=== PATIENT | female | born 1945 | race Caucasian/White ===

== ENCOUNTER 2022-11-29 12:26 | Emergency (ER) | payer OTHER ==
--- OUTSIDE RECORDS SUMMARY | 2022-11-29 12:32 | XMS REPORT | Continuity of Care Document ---
:1945 Author Organization [facility] t Address [address] [facility] [address] [place] [address] Care Team Providers Name Role Phone Clement OLSON, Suraj Primary Care Physician Tarik Morocho Attending Clinician Suraj Vaughan Attending Clinician Trip OLSON, Anish Méndez Attending Clinician Susie Roberson MA Attending Clinician Unavailable Dionne Willams Attending Clinician Jl Trinidad Attending Clinician Tomi Montemayor Attending Clinician Tomi Montemayor Admitting Clinician Payers Payer Name Policy Type Policy Number Effective Date Expiration Date S ource Problems Condition Condition Condition Status Onset Resolution Last Treating Co mments Source Name Details Category Date Date Treatment Clinician Date 773.91 - 884.45 - Diagnosis Active 2013-042014-07-21 Memoria DYSPHAGIA DYSPHAGIA 06-03 20:43:00 l NOS 786.2 NOS 786.2 00:01: Julia meño - COUGH - COUGH 00 Active 04/02/2014 [facility] [place] Body mass Body mass Problem Active 2013-042020-08-22 Memoria index 30+ index 30+ 2 01:27:14 l - obesity - obesity 00:00: Julia meño (finding) (finding) 00 Active 04/02/2014 Problem 08/22/2020 Data migrated from [employer] on 09/21/14. Medical Group Malaise Malaise Problem Active 2013-042020-08-22 M emoria and and 06-03 01:27:14 l fatigue fatigue 00:00: Aurelio (finding) (finding) 00 Active 04/02/2014 Problem 08/22/2020 Data migrated from [employer] on 09/21/14. Medical Group CVA, POST CVA, Diagnosis Active 2013-12-18 Memoria TPA POST TPA 12-15 16:24:00 l Active 00:00: Aurelio 12/15/2013 00 [facility] SONJA SONJA Diagnosis Active 2013-12-15 Memoria BILLING BILLING 12-14 14:48:00 l Active 00:00: [place] 12/14/2013 00 [facility] Allergic Allergic Problem Resolve 2021-10-02 Memoria rhinitis rhinitis d 03:46:14 l (disorder) (disorder) David rmann Resolved Problem 10/02/2021 Data migrated from [employer] on 09/21/14. Medical Group Carpal Carpal Problem Resolve 2021-10-02 Mem oria tunnel tunnel d 03:46:14 l syndrome syndrome Kieran n (disorder) (disorder) Resolved Problem 10/02/2021 Medical Group,[facility] Adjustment Adjustmen Problem Active 2020-08-22 Memoria disorder t disorder 01:27:14 l with with Aurelio depressed depressed mood mood (disorder) (disorder) Active Problem 08/22/2020 Medical Group Dyssomnia Dyssomnia Problem Active 2022-02-11 Memoria (disorder) (disorder) 23:43:05 l Active [place] Problem 02/11/2022 Medical Group Generalize Problem Active 2022-02-11 M emoria d anxiety Generalize 23:43:05 l disorder d anxiety Lauren nn (disorder) disorder (disorder) Active Problem 02/11/2022 Medical Group Hyperlipid Hyperlipi Problem Active 2020-11-30 Memoria emia demia 00:19:42 l (disorder) (disorder) David rmann Active Problem 11/30/2020 Medical Group Dizzy Dizzy Problem Active 2020-08-22 Memor ia spells spells 01:27:14 l (finding) (finding) Herm meño Active Problem 08/22/2020 Medical Group Heart Heart Problem Active 2020-08-22 Memor ia murmur murmur 01:27:14 l (finding) (finding) Herm meño Active Problem 08/22/2020 Medical Group Joint pain Joint Problem Active 2020-08-22 M emoria (finding) pain 01:27:14 l (finding) [place] Active Problem 08/22/2020 [facility] Chronic Chronic Problem Active 2022-04-02 Me moria kidney kidney 23:11:35 l disease disease [place] stage 3 stage 3 (disorder) (disorder) Active Problem 04/02/2022 Medical Group,[facility] Gastroesop Gastroeso Problem Active 2022-04-02 Memoria hageal phageal 23:11:35 l reflux reflux [place] disease disease (disorder) (disorder) Active Problem 04/02/2022 [facility] Hypertensi Hypertens Problem Active 2022-04-02 Memoria ve margi 23:11:35 l disorder, disorder, Herm meño systemic systemic arterial arterial (disorder) (disorder) Active Problem 04/02/2022 Medical Group,[facility] Mixed Mixed Problem Active 2022-04-02 Memor ia anxiety anxiety 23:11:35 l and and Aurelio depressive depressive disorder disorder (disorder) (disorder) Active Problem 04/02/2022 [facility] Mixed Mixed Problem Active 2022-04-02 Memor ia hyperlipid hyperlipid 23:11:35 l lc platt Aurelio (disorder) (disorder) Active Problem 04/02/2022 Medical Group,[facility] Simple Simple Problem Active 2022-04-02 [facility] obesity obesity 23:11:35 l (disorder) (disorder) He rmann Active Problem 04/02/2022 [facility] CVA CVA Diagnosis Active 2013-12-18 Mem oria Active 16:24:[address] [facility] Atrophic Atrophic Problem Resolve 2013-042021-10-02 2021-10-02 Memoria vaginitis vaginitis d 06-03 03:46:14 03:46:14 l (disorder) (disorder) 00:00: He rmann Resolved 00 04/02/2014 Problem 10/02/2021 Data migrated from [employer] on 10/30/14.
Data migrated from [employer] on 09/21/14. Medical Group Dysphagia Problem Resolve 2013-042021-10-02 2021-10-02 Memoria (disorder) Dysphagia d 06-03 03:46:14 03:46:14 l (disorder) 00:00: Kieran n Resolved 00 04/02/2014 Problem 10/02/2021 Data migrated from [employer] on 09/21/14. [facility] Screening Screening Problem Resolve 2013-042021-10-02 2021-10-02 Memoria - health - health d 06-03 03:46:14 03:46:14 l check check 00:00: Aurelio (procedure (procedure 00 ) ) Resolved 04/02/2014 Problem 10/02/2021 Data migrated from [employer] on 10/30/14. [facility] Reactive Reactive Problem Resolve 2013-042021-10-02 2021-10-02 Memoria airways airways d 04-29 03:46:14 03:46:14 l dysfunctio dysfunctio 00:00: David guzman n syndrome n syndrome 00 (disorder) (disorder) Resolved 02/27/2014 Problem 10/02/2021 Data migrated from [employer] on 09/21/14. [facility] Dry skin Dry skin Problem Resolve 2021-10-02 2021-10-02 Memoria (finding) (finding) d 08-22 03:46:14 03:46:14 l Resolved 00:00: Aurelio 08/22/2012 00 Problem 10/02/2021 Data migrated from [employer] on 09/21/14. [facility] Long-term Long-term Problem Resolve 2021-10-02 2021-10-02 Memoria drug drug d 08-22 03:46:14 03:46:14 l therapy therapy 00:00: Aurelio (procedure (procedure 00 ) ) Resolved 08/22/2012 Problem 10/02/2021 Data migrated from [employer] on 09/21/14. Medical Group History of Past Illness Condition Condition Condition Status Onset Resolution Last Treating Co mments Source Name Details Category Date Date Treatment Clinician Date Obesity Obesity Diagnosis 2021-042022-04-02 2022-04-02 Memoria (disorder) (disorder) 2 23:11:35 23:11:35 l 03/31/2022 11:29: Kieran n Diagnosis 00 04/02/2022 Medical Group Chronic Chronic Diagnosis 2021-042022-04-02 2022-04-02 Memoria obstructiv obstructiv 2 23:11:35 23:11:35 l e lung e lung 11:29: Aurelio disease disease 00 (disorder) (disorder) 03/31/2022 Diagnosis 04/02/2022 Medical Group,[facility] Primary [facility] Anxiety Anxiety Diagnosis 2021-042022-04-02 2022-04-02 Memoria disorder disorder 06-01 23:11:35 23:11:35 l (disorder) (disorder) 11:29: He rmann 2 Diagnosis 04/02/2022 [facility] Primary [facility] Essential Essential Diagnosis 2021-042022-04-02 2022-04-02 Memoria hypertensi hypertensi 06-01 23:11:35 23:11:35 l on on 11:29: [place] (disorder) (disorder) 00 Diagnosis 04/02/2022 [facility] Gastroesop Gastroeso Diagnosis 2021-042022-04-02 2022-04-02 Memoria hageal phageal 06-01 23:11:35 23:11:35 l reflux reflux 11:29: Aurelio disease disease 00 without without esophagiti esophagiti s s (disorder) (disorder) 03/31/2022 Diagnosis 04/02/2022 [facility] Primary [facility] Encounter Encounter Problem 2021-10-02 2021-10-02 Memoria for for 09-29 03:46:14 03:46:14 l screening screening 14:30: Herm meño for for 00 malignant malignant neoplasm neoplasm of colon of colon 09/29/2021 10/02/2021 Medical [facility] Vitamin D Vitamin D Problem 2021-10-02 2021-10-02 Memoria deficiency deficiency 09-29 03:46:14 03:46:14 l , , 14:29: [place] unspecifie unspecifie 00 d d 09/29/2021 10/02/2021 Medical Group Mixed Mixed Problem 2021-10-02 2021-10-02 M emoria hyperlipid hyperlipid 09-29 03:46:14 03:46:14 l emia emia 14:29: [place] 09/29/2021 00 10/02/2021 Medical Group Iron Iron Problem 2021-10-02 2021-10-02 M emoria deficiency deficiency 09-29 03:46:14 03:46:14 l anemia, anemia, 14:29: Aurelio unspecifie unspecifie 00 d d 09/29/2021 10/02/2021 Medical Group Other long Other Problem 2021-10-02 2021-10-02 Memoria 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 09-29 03:46:14 03:46:14 l (current) (current) 14:29: Herm meño drug drug 00 therapy therapy 09/29/2021 10/02/2021 Medical Group Essential Essential Problem 2021-10-02 2021-10-02 Memoria (primary) (primary) 09-29 03:46:14 03:46:14 l hypertensi hypertensi 14:28: David rmann on on 09/29/2021 10/02/2021 [facility] Chronic Chronic Problem 2021-10-02 2021-10-02 Memoria kidney kidney 09-29 03:46:14 03:46:14 l disease, disease, 14:28: Kieran n stage 3 stage 3 00 unspecifie unspecifie d d 09/29/2021 10/02/2021 Medical Group Generalize Problem 2021-10-02 2021-10-02 Memoria d anxiety Generalize 09-29 03:46:14 03:46:14 l disorder d anxiety 14:28: Lauren nn disorder 00 09/29/2021 10/02/2021 Medical Group Gastro-eso Gastro-es Problem 2021-10-02 2021-10-02 Memoria phageal ophageal 09-29 03:46:14 03:46:14 l reflux reflux 14:28: Aurelio disease disease 00 without without esophagiti esophagiti s s 09/29/2021 10/02/2021 Medical Group Sleep Sleep Problem 2021-10-02 2021-10-02 M emoria disorder, disorder, 09-29 03:46:14 03:46:14 l unspecifie unspecifie 14:28: He rmann d d 00 09/29/2021 10/02/2021 Medical Group Cardiac Cardiac Problem 2020-042021-03-26 2021-03-26 Memoria murmur, murmur, 05-23 01:24:34 01:24:34 l unspecifie unspecifie 20:30: He rmann d d 00 03/23/2021 03/26/2021 Medical Group Pain in Pain in Problem 2020-042021-03-26 2021-03-26 Memoria unspecifie unspecifie 05-23 01:24:34 01:24:34 l d elbow d elbow 20:28: Aurelio 03/23/2021 00 03/26/2021 Medical Group Rash and Rash and Problem 2020-042021-03-26 2021-03-26 Memoria other other 05-23 01:24:34 01:24:34 l nonspecifi nonspecifi 20:27: He ngocann c skin c skin 00 eruption eruption 03/23/2021 Medical Group Other Other Problem 2020-042021-03-26 2021-03-26 M emoria fatigue fatigue 05-23 01:24:34 01:24:34 l 03/23/2021 20:18: Kieran ham 03/26/2021 00 Medical Group Pain in Pain in Problem 2020-042021-03-26 2021-03-26 Memoria left foot left foot 05-23 01:24:34 01:24:34 l 03/23/2021 20:17: Kieran ham 03/26/2021 00 Medical Group Pain in Pain in Problem 2020-042021-03-26 2021-03-26 Memoria right right 05-23 01:24:34 01:24:34 l shoulder shoulder 20:17: Kieran ham 03/23/2021 00 03/26/2021 Medical Group Anemia, Anemia, Problem 2020-042021-03-26 2021-03-26 Memoria unspecifie unspecifie 05-23 01:24:34 01:24:34 l d d 20:14: [place] 03/23/2021 00 03/26/2021 Medical Group Allergies, Adverse Reactions, Alerts Allergy Allergy Status Severity Reaction(s) Onset Inactive Treating Comm ents Source Name Type Date Date Clinician No Known No Known Active Memori a Medicati Medicati l on on Aurelio Allergmargaret Allergmargaret s s Social History Social Habit Start Date Stop Date Quantity Comments Source History [facility] Confucianist Alcohol Std Drinks Hospit al History [facility] Gender identity [facility] Tobacco use and 2021-06-08 2021-06-08 Smokeless [facility] exposure 00:00:00 00:00:00 tobacco non-user Hospital History SDOH 2021-06-08 2021-06-08 1 [facility] Alcohol Frequency 00:00:00 00:00:00 Hospita l Alcohol intake 2021-06-08 2021-06-08 Lifetime Confucianist 00:00:00 00:00:00 non-drinker Hospital (finding) History of Social 2021-06-08 2021-06-[address] function 00:00:00 00:00:00 Hospital Sex Ass[birth year] At [birth year] [facility] 00:00:00 00:00:00 Hospital Smoking Status Start Date Stop Date Source Tobacco smoking status [facility] Medications Ordered Filled Start Stop Current Ordering Indication Dosage Frequency Signature Comments Components Source Medication Medication Date Date Medication? Clinician (SIG) Name Name doxepin 50 2021-04 Yes = 1 cap, Mem oria mg oral 1-07 PO, l capsule 19:17: Bedtime, Kieran n 00 PRN NEEDED FOR SLEEP, # 90 unknown unit, 0 Refill(s), Pharmacy: [facility] #[id number], 156.21, cm, 09/29/21 9:03:00 CDT, Height, 73.636, kg, 09/29/21 9:03:00 CDT, Weight pantoprazol 2021-04 Yes = 1 tab, Me moria e 40 mg 1-02 PO, Daily, l oral 18:57: # 90 tab, [place] enteric 00 0 coated Refill(s), tablet Pharmacy: [facility] #[id number], 156.21, cm, 09/29/21 9:03:00 CDT, Height, 73.636, kg, 09/29/21 9:03:00 CDT, Weight doxepin 50 2021-04 Yes = 1 cap, Mem oria mg oral 0-02 PO, l capsule 16:31: Bedtime, Kieran n 00 PRN NEEDED FOR SLEEP, # 90 unknown unit, 0 Refill(s), Pharmacy: [facility] #[id number], 156.21, cm, 09/29/21 9:03:00 CDT, Height, 73.636, kg, 09/29/21 9:03:00 CDT, Weight pantoprazol 2021-04 Yes = 1 tab, Me moria e 40 mg 0-02 PO, Daily, l oral 16:31: # 90 tab, [place] enteric 00 0 coated Refill(s), tablet Pharmacy: [facility] #[id number], 156.21, cm, 09/29/21 9:03:00 CDT, Height, 73.636, kg, 09/29/21 9:03:00 CDT, Weight celecoxib 2021- Yes = 1 cap, Hesham chi 100 mg oral 7-15 PO, BID, l capsule 19:12: PRN [place] 00 NEEDED FOR PAIN, # 180 cap, 1 Refill(s), Pharmacy: [facility] #[id number], 156.21, cm, 09/29/21 9:03:00 CDT, Height, 73.636, kg, 09/29/21 9:03:00 CDT, Weight tizanidine Yes = 1 cap, Mem oria 2 mg oral 6-23 PO, l capsule 13:46: Bedtime, Kieran n 00 PRN NEEDED FOR MUSCLE SPASM, # 90 unknown unit, 1 Refill(s), Pharmacy: [facility] #[id number], 156.21, cm, 09/29/21 9:03:00 CDT, Height, 73.636, kg, 09/29/21 9:03:00 CDT, Weight hydrochloro 2021-0 Yes 1 tab, PO, Memoria thiazide-va 6-07 Daily, # l lsartan 25 14:26: 90 tab, 3 He rmann mg-320 mg 00 Refill(s), oral tablet Pharmacy: [facility] #[id number], 156.21, cm, 09/29/21 9:03:00 CDT, Height, 73.636, kg, 09/29/21 9:03:00 CDT, Weight Symbicort Yes 10 gm, Memori a 80/4.5 09-29 INHALE 2 l inhalation 14:02: PUFFS BY Her ball aerosol 00 MOUTH with TWICE adapter DAILY, 0 Refill(s) aspirin 81 2021-0 Yes 81mg QD Chew 81 mg M ethodi mg chewable 2-[address] tablet 10:15: Hospita 48 l ALBUTEROL, 2021-0 Yes as needed. M ethodi BULK, MISC 2-14 st 10:15: Hospita 48 l aspirin 81 2021-0 Yes 81mg QD Chew 81 mg M ethodi mg chewable 2-[address] tablet 10:15: Hospita 48 l ALBUTEROL, 2021-0 Yes as needed. M ethodi BULK, MISC 2-14 st 10:15: Hospita 48 l celecoxib 2021-0 Yes Q.5D 2 (two) Metho di (CeleBREX) 2-[address] 100 MG 00:00: day as Hospita capsule 00 needed. l celecoxib 2021-0 Yes Q.5D 2 (two) Metho di (CeleBREX) 2-[address] 100 MG 00:00: day as Hospita capsule 00 needed. l doxepin 2021-0 Yes 50mg QD Take 50 mg Meth selena (SINEquan) 1-[address] 50 MG 00:00: nightly as Hospit a capsule 00 needed. l doxepin 2021-0 Yes 50mg QD Take 50 mg Meth selena (SINEquan) 1-[address] 50 MG 00:00: nightly as Hospit a capsule 00 needed. 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, Height, 70.568, kg, 03/23/21 13:47:00 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, Weight Metoprolol 2020-04 Yes = 1 tab, Mem oria Succinate - PO, Daily, l ER 50 mg 20:15: # 90 tab, Herm meño oral 00 3 tablet, Refill(s), extended Pharmacy: [id number], 154.94, cm, 03/23/21 13:47:00 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, Height, 70.568, kg, 03/23/21 13:47:00 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, Weight celecoxib 2020-04 Yes = 1 cap, Hesham chi 100 mg oral 05-23 PO, BID, l capsule 20:15: PRN [place] 00 NEEDED FOR PAIN, # 60 cap, 5 Refill(s), [facility][id number], 154.94, cm, 03/23/21 13:47:00 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, Height, 70.568, kg, 03/23/21 13:47:00 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, Weight Hydrochloro 2020-04 Yes 1 tab, PO, Memoria thiazide 25 - Daily, # l MG / 20:15: 90 tab, 0 [place] valsartan 00 Refill(s), 320 MG Oral Pharmacy: [facility]t [facility][id number], 154.94, cm, 03/23/21 13:47:00 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, Height, 70.568, kg, 03/23/21 13:47:00 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, Weight pantoprazol 2020-04 Yes = 1 tab, Me moria e 40 mg - PO, Daily, l oral 20:15: # 90 tab, Aurelio enteric 00 1 coated Refill(s), tablet Pharmacy: [facility] #[id number], 154.94, cm, 03/23/21 13:47:00 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, Height, 70.568, kg, 03/23/21 13:47:00 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, Weight Combivent 2020-04 Yes See Memoria Respimat 05-23 Instructio l CFC free 20:14: ns, INHALE Her ball 100 mcg-20 00 1 PUFF BY mcg/inh MOUTH inhalation EVERY 6 aerosol HOURS NEEDED WHEEZING, # 12 gm, 0 Refill(s), Pharmacy: [facility] #[id number], 154.94, cm, 03/23/21 13:47:00 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, Height, 70.568, kg, 03/23/21 13:47:00 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, Weight 120 ACTUAT 2020-04 Yes See Memoria Albuterol 05-23 Instructio l 0.1 20:14: ns, INHALE Aurelio MG/ACTUAT / 00 1 PUFF BY Ipratropium MOUTH [place] EVERY 6 0.02 HOURS MG/ACTUAT NEEDED Metered WHEEZING, Dose # 12 gm, 0 Inhaler Refill(s), [Combivent Pharmacy: ] [facility] #[id number], 154.94, cm, 03/23/21 13:47:00 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 l ) 320-25 mg per tablet pantoprazol 2020-04 Yes 40mg QD Take 40 mg Methodi e 05-[address] (PROTONIX) 00:00: daily. Hospi ta 40 MG EC 00 l tablet metoprolol 2020-04 Yes 25mg QD Take 25 mg M ethodi succinate 05-[address] XL 00:00: daily. Hospita (TOPROL-XL) 00 l 50 mg 24 hr tablet valsartan-h 2020-04 Yes 1{tbl} QD Take 1 Me thodi ydrochlorot -[address] hiazide 00:00: mouth Hospita (DIOVAN-HCT 00 daily. l ) 320-25 mg per tablet pantoprazol 2020-04 Yes 40mg QD Take 40 mg Methodi e 05-[address] (PROTONIX) 00:00: daily. Hospi ta 40 MG EC 00 l tablet metoprolol 2020-04 Yes 25mg QD Take 25 mg M ethodi succinate 05-[address] XL 00:00: daily. Hospita (TOPROL-XL) 00 l 50 mg 24 hr tablet Symbicort Yes 2 puff, Memor ia 80/4.5 01-21 INHALATION l inhalation 09:33: , BID, # Her ball aerosol 00 10.2 gm, 2 with Refill(s), adapter Pharmacy: [facility] #[id number], 154.94, cm, 01/13/21 11:35:00 CDT, Height, 74.091, kg, 01/13/21 11:35:00 CDT, Weight budesonide- Yes 2 puff, Mem oria formoterol 01-13 INHALATION l 160 mcg-4.5 20:05: , BID, # 6 [place] mcg/inh 00 gm, 0 inhalation Refill(s), aerosol Pharmacy: [facility] #[id number], 154.94, cm, 01/13/21 11:35:00 CDT, Height, 74.091, kg, 01/13/21 11:35:00 CDT, Weight Symbicort 0 No 2 puff, Memor ia 160/4.5 01-13 INHALATION l inhalation 17:16: , BID, # Her ball aerosol 00 10.2 gm, 1 with Refill(s), adapter Pharmacy: [facility] #[id number], 154.94, cm, 01/13/21 11:35:00 CDT, Height, 74.091, kg, 01/13/21 11:35:00 CDT, Weight 120 ACTUAT 0 Yes See Memoria Albuterol - Instructio l 0.1 17:16: ns, INHALE [place] MG/ACTUAT / 00 1 PUFF BY Ipratropium MOUTH [place] EVERY 6 0.02 HOURS MG/ACTUAT NEEDED Metered WHEEZING, Dose # 12 gm, 0 Inhaler Refill(s), [Combivent Pharmacy: ] [facility] #[id number], 154.94, cm, 01/13/21 11:35:00 CDT, Height, 74.091, kg, 01/13/21 11:35:00 CDT, Weight predniSONE 2020-0 Yes 40 mg = 2 Me moria 20 mg oral 9-21 tab, PO, l tablet 17:15: Daily, X 5 Lauren nn 00 day, # 10 tab, 0 Refill(s), Pharmacy: [facility] #[id number], 154.94, cm, 01/13/21 11:35:00 CDT, Height, 74.091, kg, 01/13/21 11:35:00 CDT, Weight Doxycycline 0 Yes 100 mg = 1 Memoria Monohydrate 9-21 cap, PO, l 100 MG Oral 17:15: Q12H, X 10 Aurelio Capsule day, # 20 cap, 0 Refill(s), Pharmacy: [facility] #[id number], 154.94, cm, 01/13/21 11:35:00 CDT, Height, 74.091, kg, 01/13/21 11:35:00 CDT, Weight Doxepin 0 Yes 50 mg = 1 Memor ia Hydrochlori 8-04 cap, PO, l de 50 MG 23:12: Bedtime, Lauren nn Oral 00 PRN Sleep, Capsule # 30 cap, 0 Refill(s), Pharmacy: [facility] #[id number], 154.94, cm, 11/21/20 7:06:00 CDT, Height, 69.091, kg, 11/21/20 7:06:00 CDT, Weight Ibuprofen 2020-0 Yes 200 mg = 1 Me moria 200 MG Oral 7-30 tab, PO, l Tablet 21:38: PRN Aurelio 00 ibuprofen 0 Yes 200 mg = 1 Me moria 200 mg oral 7-30 tab, PO, l tablet 21:38: PRN [place] 00 clobetasol 2020-0 Yes 1 appl, Hesham chi topical 7-30 TOP, BID, l 0.05% cream 12:27: X 14 day, H ermann 00 # 45 gm, 1 Refill(s), [id number], 154.94, cm, 11/21/20 7:06:00 CDT, Height, 69.091, kg, 11/21/20 7:06:00 CDT, Weight Hydrochloro 2020-0 No 0 Memori a thiazide 25 7-30 Refill(s) l MG / 12:16: [place] valsartan 00 320 MG Oral Tablet Aspirin Low 2020-0 Yes = 1 tab, Me moria Dose 81 mg 4-12 PO, Daily, l oral 22:47: # 90 tab, [place] enteric 00 4 coated Refill(s), tablet Pharmacy: [facility] #[id number], 156.21, cm, 06/18/20 8:35:00 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, Height, 69.773, kg, 06/18/20 8:35:00 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, Weight Symbicort 0 Yes 2 puff, Memor ia 160/4.5 2-24 INHALATION l inhalation 20:33: , BID, # Her ball aerosol 00 10.2 gm, 1 with Refill(s), adapter Pharmacy: [facility] #[id number], 156.21, cm, 06/18/20 8:35:00 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, Height, 69.773, kg, 06/18/20 8:35:00 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, Weight tizanidine 0 Yes 2 mg = 1 Mem oria 2 mg oral 2-24 cap, PO, l capsule 15:04: Bedtime, Kieran n 00 PRN for muscle spasm, # 90 cap, 1 Refill(s), Pharmacy: [facility] #[id number], 156.21, cm, 06/18/20 8:35:00 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, Height, 69.773, kg, 06/18/20 8:35:00 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, Weight doxazosin 2 2020-0 Yes = 1 tab, Me moria mg oral 2-24 PO, l tablet 15:03: Bedtime, # Lauren nn 00 30 tab, 5 Refill(s), Pharmacy: [facility] #[id number], 156.21, cm, 06/18/20 8:35:00 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, Height, 69.773, kg, 06/18/20 8:35:00 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, Weight buPROPion Yes See Memoria 150 mg/12 2-24 Instructio l hours (SR) 15:02: ns, TAKE 1 H ermann oral 00 TABLET BY tablet, MOUTH extended TWICE release DAILY, # 180 tab, 1 Refill(s), Pharmacy: [facility] #[id number], 156.21, cm, 06/18/20 8:35:00 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, Height, 69.773, kg, 06/18/20 8:35:00 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, Weight tiotropium Yes See Memoria 0.018 2-24 Instructio l MG/ACTUAT 15:02: ns, INHALE He rmann Inhalant 00 THE Powder CONTENTS [Spiriva] OF 1 CAPSULE VIA INHALATION DEVICE DAILY, # 30 cap, 5 Refill(s), Pharmacy: [facility] #[id number], 156.21, cm, 06/18/20 8:35:00 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, Height, 69.773, kg, 06/18/20 8:35:00 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, Weight Symbicort Yes 2 puff, Memor ia 160/4.5 2-24 INHALATION l inhalation 15:02: , BID, # 3 H ermann aerosol 00 ea, 1 with Refill(s), adapter Pharmacy: [facility] #[id number], 156.21, cm, 06/18/20 8:35:00 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, Height, 69.773, kg, 06/18/20 8:35:00 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, Weight celecoxib 0 Yes = 1 cap, [place] chi 100 mg oral 2-24 PO, BID, l capsule 15:02: PRN [place] 00 NEEDED FOR PAIN, # 180 cap, 1 Refill(s), Pharmacy: [facility] #[id number], 156.21, cm, 06/18/20 8:35:00 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, Height, 69.773, kg, 06/18/20 8:35:00 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, Weight Hydrochloro 0 Yes 1 tab, PO, Memoria thiazide 25 2-24 Daily, # l MG / 15:02: 90 tab, 1 Aurelio valsartan 00 Refill(s), 320 MG Oral Pharmacy: [facility] #[id number], 156.21, cm, 06/18/20 8:35:00 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, Height, 69.773, kg, 06/18/20 8:35:00 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, Weight Metoprolol Yes = 1 tab, Mem oria Succinate 2-24 PO, Daily, l ER 50 mg 15:02: # 90 tab, Herm meño oral 00 1 tablet, Refill(s), extended Pharmacy: release [facility] #[id number], 156.21, cm, 06/18/20 8:35:00 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, Height, 69.773, kg, 06/18/20 8:35:00 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, Weight baclofen 10 No = 1 tab, Me moria mg oral 1-30 PO, TID, # l tablet 23:18: 90 tab, 0 Kieran n 00 Refill(s), Pharmacy: [facility] #[id number], 154.94, cm, 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, Height, 75, kg, 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, Weight Aspirin Yes 81 mg = 1 Memor ia Enteric 1-13 tab, PO, l Coated 81 13:15: Daily, X Herm meño mg oral 00 90 day, # delayed 90 tab, 0 release Refill(s), tablet Pharmacy: [facility] #[id number], 154.94, cm, 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, Height, 75, kg, 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, Weight pantoprazol Yes = 1 tab, Me moria e 40 mg 1-13 PO, Daily, l oral 13:15: # 90 tab, Aurelio enteric 00 0 coated Refill(s), tablet Pharmacy: [facility] #[id number], 154.94, cm, 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, Height, 75, kg, 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, Weight Hydrochloro Yes 1 tab, PO, Memoria thiazide 25 1-13 Daily, # l MG / 13:15: 90 tab, 0 [place] valsartan 00 Refill(s), 320 MG Oral Pharmacy: Tablet [facility] #[id number], 154.94, cm, 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, Height, 75, kg, 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, Weight Ondansetron 2019-04 Yes 8 mg = 1 Me moria 8 MG Oral 1-25 tab, PO, l Tablet 15:42: TID, # 10 Kieran n [Zofran] 00 tab, 0 Refill(s), 154.94, cm, 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, 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, 75, kg, 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, Weight amoxicillin 2018-04 Yes 500 mg = 1 Memoria 500 mg oral 2-23 tab, PO, l tablet 14:46: TID, X 7 Aurelio 00 day, # 21 tab, 0 Refill(s), Pharmacy: [facility] #[id number] tiotropium 2018-04 Yes See Memoria 0.018 2-23 Instructio l MG/ACTUAT 14:40: ns, INHALE David guzman Inhalant 09 THE Powder CONTENTS [Spiriva] OF 1 CAPSULE VIA INHALATION DEVICE DAILY, # 30 cap, 5 Refill(s), Pharmacy: [facility] #[id number] pantoprazol 2018-04 Yes = 1 tab, Me moria e 40 mg 2-23 PO, Daily, l oral 14:39: # 90 tab, Aurelio enteric 38 1 coated Refill(s), tablet Pharmacy: [facility] #[id number] OXcarbazepi 2018-04 Yes 300 mg = 1 Memoria ne 300 mg 2-23 tab, PO, l oral tablet 14:39: BID, # 180 Aurelio 37 tab, 1 Refill(s), Pharmacy: [facility] #[id number] Ondansetron 2018-04 Yes 8 mg = 1 Me moria 8 MG 2-23 tab, PO, l Disintegrat 14:39: TID, PRN David guzman ing Tablet 34 Nausea and [Zofran] Vomiting, Dissolve tab under tongue, # 10 tab, 0 Refill(s), Pharmacy: [facility] #[id number] metoprolol 2018-04 Yes 50 mg = 1 Me moria 50 mg oral 2-23 tab, PO, l tablet, 14:39: Daily, # Kieran n extended 30 90 tab, 1 release Refill(s), Pharmacy: [facility] #[id number] levocetiriz 2018- Yes 5 mg = 1 Me moria ine 5 mg 2-23 tab, PO, l oral tablet 14:39: Bedtime, He rmann 27 PRN as needed for allergy symptoms, # 90 tab, 1 Refill(s), Pharmacy: [facility] #[id number] Hydrochloro 2018- Yes 1 tab, PO, Memoria thiazide 25 2-23 Daily, # l MG / 14:39: 90 tab, 1 Aurelio valsartan 24 Refill(s), 320 MG Oral Pharmacy: Tablet [facility] #[id number] doxazosin 2 2018-04 Yes = 1 tab, Me moria mg oral 2-23 PO, l tablet 14:37: Bedtime, # Lauren nn 21 90 tab, 1 Refill(s), Pharmacy: [facility] #[id number] celecoxib 2018-04 Yes See Memoria 100 mg oral 2-23 Instructio l capsule 14:37: ns, TAKE 1 Herm meño 08 CAPSULE BY MOUTH TWICE DAILY NEEDED FOR PAIN, # 180 cap, 1 Refill(s), Pharmacy: [facility] #[id number] buPROPion 2018-04 Yes See Memoria 150 mg/12 2-23 Instructio l hours (SR) 14:37: ns, TAKE 1 H ermann oral 06 TABLET BY tablet, MOUTH extended TWICE release DAILY, # 180 tab, 1 Refill(s), Pharmacy: [facility] #[id number] Symbicort 2018- Yes 2 puff, Memor ia 160/4.5 2-23 INHALATION l inhalation 14:37: , BID, # 3 H ermann aerosol 00 ea, 1 with Refill(s), adapter Pharmacy: [facility] #[id number] baclofen 10 2018-04 Yes = 1 tab, Me moria mg oral 2-23 PO, TID, # l tablet 14:36: 270 tab, 1 Lauren nn 55 Refill(s), [id number] Aspirin 2018- Yes See Memoria Enteric 2-23 Instructio l Coated 81 14:36: ns, TAKE 1 He rmann mg oral 45 TABLET BY delayed MOUTH release DAILY, # tablet 100 tab, 3 Refill(s), Pharmacy: [facility] #[id number] 120 ACTUAT 2018-04 Yes 1 puff, Hesham chi Albuterol 2-23 INHALATION l 0.1 14:36: , Q6H, PRN [place] MG/ACTUAT / 42 wheezing, Ipratropium # 3 ea, 1 [place] Refill(s), 0.02 Pharmacy: MG/ACTUAT [facility] #[id number] Inhaler [Combivent 20/100] Doxepin 2018-04 Yes 50 mg = 1 Memor ia Hydrochlori 2-23 cap, PO, l de 50 MG 14:36: Bedtime, Lauren nn Oral 00 PRN Sleep, Capsule # 30 cap, 3 Refill(s), Pharmacy: [facility] #[id number] levocetiriz Yes 5 mg = 1 Me moria ine 5 mg 9-24 tab, PO, l oral tablet 16:47: Bedtime, He rmann 00 PRN as needed for allergy symptoms, # 30 tab, 1 Refill(s), Pharmacy: [facility] #[id number] Estrogens, Yes 1 appl, Hesham chi Conjugated 9-24 VAG, l (LONG TERM) 0.625 16:47: Bedtime, He rmann MG/ML 00 daily for Vaginal 21 days, Cream then off [Premarin] for 7 days, # 42 gm, 0 Refill(s), Pharmacy: [facility] #[id number] Hydrochloro 2018- Yes 1 tab, PO, Memoria thiazide 25 9-24 Daily, # l MG / 16:45: 90 tab, 1 Aurelio valsartan 00 Refill(s), 320 MG Oral [id number] tiotropium Yes See Memoria 0.018 9-24 Instructio l MG/ACTUAT 16:44: ns, INHALE He rmann Inhalant 32 THE Powder CONTENTS [Spiriva] OF 1 CAPSULE VIA INHALATION DEVICE DAILY, # 30 cap, 5 Refill(s), [id number] pantoprazol Yes = 1 tab, Me moria e 40 mg 9-24 PO, Daily, l oral 16:44: # 30 tab, [place] enteric 25 5 coated Refill(s), tablet Pharmacy: [facility] #[id number] OXcarbazepi 2019- Yes 300 mg = 1 Memoria ne 300 mg 9-24 tab, PO, l oral tablet 16:44: BID, # 60 H ermann 17 tab, 5 Refill(s), Pharmacy: [facility] #[id number] Doxepin 2019- Yes = 1 cap, Memori a Hydrochlori 9-24 PO, l de 25 MG 16:43: Bedtime, Lauren nn Oral 41 PRN Capsule NEEDED FOR SLEEP, # 30 cap, 5 Refill(s), Pharmacy: [facility] #[id number] doxazosin 2 Yes = 1 tab, Me moria mg oral 9-24 PO, l tablet 16:43: Bedtime, # Lauren nn 35 30 tab, 5 Refill(s), Pharmacy: [facility] #[id number] celecoxib Yes = 1 cap, Hesham chi 100 mg oral 9-24 PO, BID, l capsule 16:43: PRN Aurelio 17 NEEDED FOR PAIN, # 60 cap, 3 Refill(s), Pharmacy: [facility] #[id number] buPROPion Yes See Memoria 150 mg/12 9-24 Instructio l hours (SR) 16:43: ns, TAKE 1 H ermann oral 12 TABLET BY tablet, MOUTH extended TWICE release DAILY, # 60 tab, 5 Refill(s), Pharmacy: [facility] #[id number] baclofen 10 Yes = 1 tab, Me moria mg oral 9-24 PO, TID, # l tablet 16:42: 270 tab, 1 Lauren nn 58 Refill(s), Pharmacy: [facility] #[id number] metoprolol 2018- Yes 50 mg = 1 Me moria 50 mg oral 9-24 tab, PO, l tablet, 16:40: Daily, # Kieran n extended 00 90 tab, 1 release Refill(s), [id number] celecoxib 2018- Yes 100 mg = 1 Me moria 100 mg oral 3-25 cap, PO, l capsule 16:55: BID, PRN Kieran n 00 Pain Score 7-10, # 60 cap, 3 Refill(s), Pharmacy: [facility] Cephalexin Yes 500 mg = 1 M emoria 500 MG Oral 3-25 cap, PO, l Capsule 16:55: BID, X 7 Kieran n [Keflex] 00 day, # 14 cap, 0 Refill(s), Pharmacy: [facility] Hydrochloro Yes 1 tab, PO, Memoria thiazide 25 3-25 Daily, # l MG / 16:47: 90 tab, 1 [place] telmisartan 00 Refill(s), 80 MG Oral Pharmacy: Tablet [facility] Hydrochloro Yes See Memori a thiazide 25 3-25 Instructio l MG / 16:45: ns, TAKE 1 Aurelio valsartan 51 TABLET BY 320 MG Oral MOUTH Tablet DAILY, # 30 tab, 5 Refill(s), Pharmacy: [facility] [place] [address] Doxepin Yes See Memoria Hydrochlori 3-14 Instructio l de 25 MG 22:39: ns, TAKE 1 Her ball Oral 00 CAPSULE BY Capsule MOUTH AT BEDTIME NEEDED FOR SLEEP, # 30 cap, 1 Refill(s), Pharmacy: [facility] [place] [address] baclofen 10 Yes = 1 tab, Me moria mg oral 3-13 PO, TID, # l tablet 16:22: 270 tab, [place] 40 Pharmacy: [facility] [place] [address] baclofen 10 No = 1 tab, Me moria mg oral 1-07 PO, TID, l tablet 18:59: PRN Aurelio 53 NEEDED FOR SPASMS, # 60 tab, Refill(s) 1, Pharmacy: [facility] [place] [address] Ondansetron 2017-04 Yes 8 mg = 1 Me moria 8 MG 2-27 tab, PO, l Disintegrat 21:30: TID, PRN He rmmeño ing Tablet 00 Nausea and [Zofran] Vomiting, Dissolve tab under tongue, # 10 tab, 0 Refill(s), Pharmacy: [facility] [place] [address] levalbutero 2017-04 Yes 1.25 mg = M emoria l 1.25 2-26 0.5 mL, l mg/0.5 mL 22:02: NEB, TID, Her ball inhalation 00 PRN for solution wheezing, # 60 ea, 2 Refill(s), Pharmacy: [facility] Bromphenira 2017-04 No 5 mL, PO, M emoria mine 2- TID, PRN l Maleate 0.4 21:57: cough, X 8 Aurelio MG/ML / 00 day, # 120 Dextrometho mL, 0 rphan Refill(s), Hydrobromid Pharmacy: e 2 MG/ML / [facility] [id number] Hydrochlori de 6 MG/ML Oral Solution [Bromfed DM] Albuterol 2017-04 No 2.49 mg = Mem oria 0.83 MG/ML 06-20 3 mL, l Inhalant 21:56: INHALATION Her ball Solution 00 , Q6H, PRN wheezing, coughing, or shortness of breath, # 50 ea, 1 Refill(s), Pharmacy: [facility] Azithromyci 2017-04 No See Memori a n 5 Day 2- Instructio l Dose Pack 20:52: ns, Take 2 He rmann 250 mg oral 00 tablets by tablet mouth the first day then 1 tablet by mouth days 2-5., X 5 day, # 6 tab, 0 Refill(s), Pharmacy: [facility] Medrol 4 mg 2017-04 Yes = 1 pkt, Me moria oral tablet - PO, ONCE, l 20:52: as Aurelio 00 directed on package labeling, # 21 tab, 0 Refill(s), Pharmacy: [facility] Albuterol 2017-04 No 3 mL, NEB, Me moria 0.833 MG/ML 06-20 Q6H, PRN l / 20:51: wheezing, [place] Ipratropium 00 cough, SOB [place] (493.90, 0.167 MG/ML 496), # Inhalant 360 mL, 1 Solution Refill(s), Pharmacy: [facility] baclofen 10 2017-04 No See Memori a mg oral 0-10 Instructio l tablet 22:16: ns, # 270 Kieran n 22 tab, Refill(s) 1, TAKE 1 TABLET BY MOUTH THREE TIMES DAILY NEEDED FOR SPASMS., Pharmacy: [facility] tiotropium 2017-04 Yes See Memoria 0.018 0-10 Instructio l MG/ACTUAT 16:10: ns, INHALE He rmann Inhalant 27 THE Powder CONTENTS [Spiriva] OF 1 CAPSULE VIA INHALATION DEVICE DAILY, # 30 cap, 5 Refill(s), Pharmacy: [facility] [place] [address] pantoprazol 2017-04 No See Memori a e 40 mg 0-10 Instructio l oral 16:10: ns, TAKE 1 [place] enteric 24 TABLET BY coated MOUTH tablet DAILY, # 30 tab, 5 Refill(s), Pharmacy: [facility] [place] [address] OXcarbazepi 2017-04 Yes 300 mg = 1 Memoria ne 300 mg 0-10 tab, PO, l oral tablet 16:10: BID, # 60 H ermann 21 tab, 3 Refill(s), Pharmacy: [facility] [place] [address] Metoprolol 2017-04 Yes See Memoria Succinate 0-10 Instructio l ER 100 mg 16:10: ns, TAKE 1 He rmann oral 17 TABLET BY tablet, MOUTH extended DAILY, # release 90 tab, 1 Refill(s), Pharmacy: [facility] [place] [address] Hydrochloro 2017-04 No See Memori a thiazide 25 0-10 Instructio l MG / 16:10: ns, TAKE 1 Aurelio valsartan 14 TABLET BY 320 MG Oral MOUTH Tablet DAILY, # 30 tab, 5 Refill(s), Pharmacy: [facility] [place] [address] buPROPion 2017-04 Yes See Memoria 150 mg/12 0-10 Instructio l hours (SR) 16:09: ns, TAKE 1 H ermann oral 52 TABLET BY tablet, MOUTH extended TWICE release DAILY, # 60 tab, 5 Refill(s), Pharmacy: [facility] [place] [address] Symbicort 2017-04 Yes 2 puff, Memor ia 160/4.5 0-10 INHALATION l inhalation 16:09: , BID, # 3 H ermann aerosol 50 ea, 1 with Refill(s), adapter Pharmacy: [facility] [place] [address] baclofen 10 2017-04 No See Memori a mg oral 0-10 Instructio l tablet 16:09: ns, TAKE 1 Lauren nn 46 TABLET BY MOUTH THREE TIMES DAILY NEEDED FOR SPASMS, # 60 tab, 0 Refill(s), [facility], needs appt 120 ACTUAT 2017-04 Yes 1 puff, Hesham chi Albuterol 0-10 INHALATION l 0.1 16:09: , Q6H, PRN Aurelio MG/ACTUAT / 44 wheezing, Ipratropium # 3 ea, 1 [place] Refill(s), 0.02 [id number] Inhaler [Combivent 20/100] baclofen No See Memori a mg oral 9-17 Instructio l tablet 21:25: ns, TAKE 1 Lauren nn 24 TABLET BY MOUTH THREE TIMES DAILY NEEDED FOR SPASMS, # 60 tab, 0 Refill(s), [facility], needs appt baclofen No See Memori a mg oral 8-24 Instructio l tablet 21:34: ns, # 90 [place] 36 tab, TAKE 1 TABLET BY MOUTH THREE TIMES DAILY NEEDED FOR SPASMS, [facility] baclofen No See Memori a mg oral 8-01 Instructio l tablet 17:15: ns, # 90 [place] 42 tab, TAKE 1 TABLET BY MOUTH THREE TIMES DAILY NEEDED FOR SPASMS, [facility] Doxepin Yes See Memoria Hydrochlori 6-21 Instructio l de 25 MG 15:53: ns, # 30 Lauren nn Oral 02 unknown Capsule unit, TAKE 1 CAPSULE BY MOUTH AT BEDTIME NEEDED FOR SLEEP, [facility] Doxepin No See Memoria Hydrochlori 4-03 Instructio l de 25 MG 15:34: ns, TAKE 1 Her ball Oral 03 CAPSULE BY Capsule MOUTH AT BEDTIME NEEDED FOR SLEEP, # 30 cap, 2 Refill(s), [facility] buPROPion Yes See Memoria 150 mg/12 4-03 Instructio l hours (SR) 15:33: ns, TAKE 1 H ermann oral 57 TABLET BY tablet, MOUTH extended TWICE release DAILY, # 60 tab, 5 Refill(s), [facility] doxazosin 2 2016-04 Yes 2 mg = 1 Me moria mg oral 2-15 tab, PO, l tablet 19:15: Bedtime, # Lauren nn 00 30 tab, 5 Refill(s), Pharmacy: [facility] [id number] valsartan Yes 80 mg = 1 Mem oria 80 mg oral 8-24 tab, PO, l tablet 19:16: BID, # 60 Kieran n 00 tab, 1 Refill(s) metoprolol Yes 200 mg = 1 M emoria 200 mg oral 8-24 tab, PO, l tablet, 19:16: Daily, # Kieran n extended 00 60 tab, 1 release Refill(s) Aspirin 81 Yes 81 mg = 1 Me moria MG Enteric 8-24 tab, PO, l Coated 19:16: Daily, # Aurelio Tablet 00 120 tab, 1 Refill(s) metoprolol No 200 mg, Hesham chi 200 mg oral 8-24 PO, Daily, l tablet, 18:59: # 30 tab, Lauren nn extended 00 0 release Refill(s) Aspirin 81 No 81 mg = 1 Me moria MG Enteric 8-24 tab, PO, l Coated 18:48: Daily, # 0 Lauren nn Tablet 00 tab, 0 Refill(s) metoprolol No Notes: Memor ia tartrate 12-16 (Same as: l 14:00: Lopressor) heparin, No Notes: Memoria porcine 12-16 porcine l 10:30: heparin Aspirin / No Notes: Do Mem oria Calcium 12-16 not crush l Carbonate 10:30: or chew. Herm (Same As: Ecotrin) Lipitor No Notes: Memoria 12-15 Same as l 22:00: Lipitor Diovan No Notes: Memoria 12-15 Same as l 22:00: Diovan metoprolol No Notes: Memor ia tartrate 12-15 (Same as: l 18:00: Lopressor) 12.5mg=1/4 X 50 mg tab. Saline No Notes: Memoria Flush 0.9% 12-15 (Same as: l 14:00: BD Posiflush) Docusate No Notes: Memoria 12-15 (Same as: l 14:00: Colace) Saline No Notes: Memoria Flush 0.9% 12-15 (Same as: l 10:33: BD Posiflush) Bisacodyl No Notes: Memori a 12-15 (Same As: l 10:33: Dulcolax, Bisco-Lax) Acetaminoph No Notes: Do M emoria en 12-15 not exceed l 10:33: 4 gm/day. (Same as: Tylenol) Sodium No 1,000 mL, Memori a Chloride 12-15 Rate: 75 l 0.154 10:33: ml/hr, MEQ/ML 00 Infuse Injectable over: 13.3 Solution hr, Route: IV, Dosing Weight 90.909 kg, Total Volume: 1,000, Start date: 12/15/13 5:33:00, Duration: 30 day, Stop date: 01/14/14 5:32:00 Labetalol No 105mmHg Hesham chi 12-15 l 10:33: Activase No 72.9 mg, Memor ia 12-15 Route: IV, l 10:26: ONCE, Dosing Weight 90.909, kg, For Stroke Infusion, Start date: 12/15/13 5:26:00, Stop date: 12/15/13 5:26:00 Activase No 8.1 mg, Memori a 12-15 Route: IV, l 10:23: ONCE, Dosing Weight 90.909, kg, For Stroke Bolus, Start date: 12/15/13 5:23:00, Stop date: 12/15/13 5:23:00 Iohexol No Special Memoria 12-15 Instructio l 09:59: ns: Dose = 2.2ml/kg, Max dose = 100ml -- "To be infused by Radiology Staff ONLY" Sodium No 1,000 mL, Memori a Chloride 12-15 1,000 l 0.154 09:18: ml/hr, Aurelio MEQ/ML 00 Infuse Injectable Over: 1 Solution hr, Route: IV, 1,000, Drug form: INJ, ONCE, Priority: STAT, kg, Start date: 12/15/13 4:18:00, Duration: 1 doses or times, Stop date: 12/15/13 4:18:00 Saline 2014-0 No Notes: Memoria Flush 0.9% 8-23 (Same as: l 09:18: BD Aurelio 00 Posiflush) Immunizations Ordered Immunization Filled Immunization Date Status Commen ts Source Name Name [id number] 2020-06-26 Completed Hesham rial [id number] 00:00:00 Aure[place] [id number] 2020-06-25 Completed Hesham rial [id number] 00:00:00 A[place] influenza virus 2018-02-01 Completed [facility] vaccine, 15:40:00 [place] inactivated<sup>1</s up> pneumococcal 2015-10-03 Completed [facility] 13-valent 14:30:00 [place] vaccine<sup>1</sup> pneumococcal 2015-10-03 Completed [facility] 13-valent 14:30:00 Aurelio vaccine<sup>2</sup> pneumococcal 2012-02-01 Completed [facility] 23-valent 12:31:01 [place] vaccine<sup>2</sup> pneumococcal 2012-02-01 Completed [facility] 23-valent 12:31:01 [place] vaccine<sup>3</sup> Vital Signs Vital Name Observation Time Observation Value Comments Source Temperature Oral (F) 2021-09-29 14:03:00 97.8 F [facility] [place] Heart Rate 2021-09-29 14:03:00 [facility] A[facility] Systolic (mm Hg) 2021-09-29 14:03:00 [place] [facility] [place] Diastolic (mm Hg) 2021-09-29 14:03:00 Mem orial [place] Height 2021-09-29 14:03:00 156.21 cm [facility] Weight 2021-09-29 14:03:00 [facility] [place] BMI Calculated 2021-09-29 14:03:00 Yinka al Aurelio Systolic blood 2021-06-08 16:12:00 183 mm[Hg] [facility] pressure Diastolic blood 2021-06-08 16:12:00 78 mm[Hg] [facility] pressure Heart rate 2021-06-08 16:12:00 56 /min [facility] Body height 2021-06-08 16:12:00 162.6 cm [facility] Body weight 2021-06-08 16:12:00 72.485 kg [facility] BMI 2021-06-08 16:12:00 27.43 kg/m2 [facility] Temperature Oral (F) 2021-03-23 19:47:00 98.3 F [facility] [place] Heart Rate 2021-03-23 19:47:00 [facility] [place] Systolic (mm Hg) 2021-03-23 19:47:00 Hesham rial [place] Diastolic (mm Hg) 2021-03-23 19:47:00 Mem orial [place] Height 2021-03-23 19:47:00 154.94 cm [facility] [place] Weight 2021-03-23 19:47:00 [facility] [place] BMI Calculated 2021-03-23 19:47:00 Memori al [place] Height 2021-01-13 16:35:00 154.94 cm [facility] Weight 2021-01-13 16:35:00 [facility] [place] BMI Calculated 2021-01-13 16:35:00 Memori al [place] Systolic (mm Hg) 2020-11-21 12:06:00 Hesham rial [place] Diastolic (mm Hg) 2020-11-21 12:06:00 Mem orial [place] Heart Rate 2020-11-21 12:06:00 [facility] [place] Temperature Oral (F) 2020-11-21 12:06:00 98 F [facility] Height 2020-11-21 12:06:00 154.94 cm [facility] [place] Weight 2020-11-21 12:06:00 [facility] [place] BMI Calculated 2020-11-21 12:06:00 Memori al [place] Systolic (mm Hg) 2020-06-18 14:35:00 Hesham rial [place] Diastolic (mm Hg) 2020-06-18 14:35:00 Mem orial [place] Heart Rate 2020-06-18 14:35:00 [facility] [place] Temperature Oral (F) 2020-06-18 14:35:00 97.6 F [facility] [place] Height 2020-06-18 14:35:00 156.21 cm [facility] [place] Weight 2020-06-18 14:35:00 [facility] [place] BMI Calculated 2020-06-18 14:35:00 Memori al [place] Systolic (mm Hg) 2020-03-19 15:21:00 Hesham rial [place] Diastolic (mm Hg) 2020-03-19 15:21:00 Mem orial [place] Temperature Oral (F) 2020-03-19 15:21:00 97 F [facility] [place] Height 2020-03-19 15:21:00 154.94 cm [facility] [place] Weight 2020-03-19 15:21:00 [facility] [place] BMI Calculated 2020-03-19 15:21:00 Memori al [place] Systolic (mm Hg) 2019-04-16 14:16:00 Hesham rial [place] Diastolic (mm Hg) 2019-04-16 14:16:00 Mem orial [place] Heart Rate 2019-04-16 14:16:00 [facility] [place] Temperature Oral (F) 2019-04-16 14:16:00 97.6 F [facility] [place] Height 2019-04-16 14:16:00 154.94 cm [facility] [place] Weight 2019-04-16 14:16:00 [facility] [place] BMI Calculated 2019-04-16 14:16:00 Memori al [place] Systolic (mm Hg) 2019-01-16 15:43:00 Hesham rial [place] Diastolic (mm Hg) 2019-01-16 15:43:00 Mem orial [place] Heart Rate 2019-01-16 15:43:00 [facility] [place] Temperature Oral (F) 2019-01-16 15:43:00 97.6 F [facility] [place] Height 2019-01-16 15:43:00 154.94 cm [facility] Weight 2019-01-16 15:43:00 [facility] [place] BMI Calculated 2019-01-16 15:43:00 Memori al [place] BMI Calculated 2018-07-17 16:23:00 Memori al [place] Weight 2018-07-17 16:23:00 [facility] [place] Height 2018-07-17 16:23:00 154.94 cm [facility] Heart Rate 2018-07-17 16:23:00 [facility] [place] Temperature Oral (F) 2018-07-17 16:23:00 98.7 F [facility] [place] Systolic (mm Hg) 2018-07-17 16:23:00 Hesham rial [place] Diastolic (mm Hg) 2018-07-17 16:23:00 Mem orial [place] Weight 2018-04-19 20:17:00 [facility] [place] Height 2018-04-19 20:17:00 154.94 cm [facility] [place] BMI Calculated 2018-04-19 20:17:00 Memori al [place] Heart Rate 2018-04-19 20:17:00 [facility] [place] Temperature Oral (F) 2018-04-19 20:17:00 98.1 F [facility] [place] Systolic (mm Hg) 2018-04-19 20:17:00 Hesham rial [place] Diastolic (mm Hg) 2018-04-19 20:17:00 Mem orial [place] BMI Calculated 2018-02-01 15:20:00 Memori al [place] Weight 2018-02-01 15:20:00 [facility] [place] Height 2018-02-01 15:20:00 157.48 cm [facility] Systolic (mm Hg) 2018-02-01 15:20:00 Hesham rial [place] Diastolic (mm Hg) 2018-02-01 15:20:00 Mem orial [place] Heart Rate 2018-02-01 15:20:00 [facility] [place] Temperature Oral (F) 2018-02-01 15:20:00 97.9 F [facility] [place] Systolic (mm Hg) 2017-07-26 15:33:00 [facility] Diastolic (mm Hg) 2017-07-26 15:33:00 [facility] Weight 2017-07-26 14:49:00 [facility] BMI Calculated 2017-07-26 14:49:00 [facility] Height 2017-07-26 14:49:00 160.02 cm [facility] Heart Rate 2017-07-26 14:49:00 [facility] Temperature Oral (F) 2017-07-26 14:49:00 97.8 F [facility] Systolic (mm Hg) 2017-07-26 14:49:00 [facility] Diastolic (mm Hg) 2017-07-26 14:49:00 [facility] Respitory Rate 2013-12-16 18:00:00 [facility] Respitory Rate 2013-12-16 17:00:00 [facility] Respitory Rate 2013-12-16 16:00:00 [facility] Systolic (mm Hg) 2013-12-16 16:00:00 [facility] Diastolic (mm Hg) 2013-12-16 16:00:00 [facility] Diastolic (mm Hg) 2013-12-16 15:00:00 [facility] Systolic (mm Hg) 2013-12-16 15:00:00 [facility] Temperature Oral (F) 2013-12-16 13:00:00 98.0 F [facility] Diastolic (mm Hg) 2013-12-16 11:09:00 [facility] Systolic (mm Hg) 2013-12-16 11:09:00 [facility] Temperature Oral (F) 2013-12-16 05:00:00 98.6 F [facility] Temperature Oral (F) 2013-12-16 01:00:00 98.7 F [facility] Weight 2013-12-15 13:26:00 [facility] Height 2013-12-15 13:26:00 160.02 cm [facility] BMI Calculated 2013-12-15 13:26:00 [facility] Weight 2013-12-15 09:15:00 [facility] Height 2013-12-15 09:15:00 160.02 cm [facility] BMI Calculated 2013-12-15 09:15:00 [facility] Heart Rate 2013-12-15 09:15:00 [facility] Procedures Procedure Date / Time Performed Performing Clinician [facility] e ECG 12-LEAD 2021-06-08 16:17:42 Anish Dominique ospital ORIF - Open reduction 2012-04-25 00:00:00 Yinka Guevara and internal fixation of fracture Colonoscopy 1998-04-25 06:00:00 [facility] Her ball POLINA BSO - Total 1994-04-25 00:00:00 [facility] Her ball abdominal hysterectomy and bilateral salpingo-oophorectomy Thyroid gland excision 1979-04-25 00:00:00 Woodrow Dumontann Excision of lipoma 1969-04-25 00:00:00 [facility] Bilateral tubal ligation Guy Caery Plan of Care Planned Activity Planned Date Details Comments Source Future Scheduled 2022-11-26 COVID-19 VACCINE (#1) [facility] Test 06:41:21 [code = COVID-19 VACCINE (#1)] Future Scheduled 2022-11-26 Hepatitis C screening [facility] Test 06:41:21 (procedure) [code = 477771863] Future Scheduled 2022-11-26 SHINGLES VACCINES (1 Met [facility] Hospital Test 06:41:21 of 2) [code = SHINGLES VACCINES (1 of 2)] Future Scheduled 2022-11-26 65+ P[facility]UMOCOCCAL [facility] Test 06:41:21 VACCINE (1 - PCV) [code = 65+ PNEUMOCOCCAL VACCINE (1 - PCV)] Future Scheduled 2022-11-26 INFLUENZA VACCINE [facility] Test 06:41:21 [code = INFLUENZA VACCINE] Future Scheduled 2021-12-24 HEPATITIS B VACCINES Met [facility] [place] [place] Test 04:28:38 (1 of 3 - 3-dose series) [code = HEPATITIS B VACCINES (1 of 3 - 3-dose series)] Future Scheduled 2021-12-24 COVID-19 VACCINE (#1) [facility] Test 04:28:38 [code = COVID-19 VACCINE (#1)] Future Scheduled 2021-12-24 65+ P[facility]UMOCOCCAL [facility] Test 04:28:38 VACCINE (1 - PCV) [code = 65+ PNEUMOCOCCAL VACCINE (1 - PCV)] Future Scheduled 2021-12-24 Hepatitis C screening [facility] Test 04:28:38 (procedure) [code = [id number]] Future Scheduled 2021-12-24 SHINGLES VACCINES (1 Met [facility] Hospital Test 04:28:38 of 2) [code = SHINGLES VACCINES (1 of 2)] Future Scheduled 2021-12-24 INFLUENZA VACCINE [facility] Test 04:28:38 [code = INFLUENZA VACCINE] Encounters Start End Encounter Admission Attending Care Care Encounter Source Date/Time Date/Time Type Type Clinicians Facility Department ID 2022-03-31 2022-03-31 Ambulatory MARGARET [id number] [facility] 13:40:00 13:40:00 Pre-Reg Primary 34 l Care [facility] 2022-03-31 2022-03-31 Outpatient SHANTEL MARGARET [id number] [facility]oria 08:00:00 08:00:00 34 favio Carey 2022-03-31 2022-03-31 Outpatient Tarik Morocho [facility] [id number] 07:40:00 07:40:00 34 2022-03-30 2022-03-30 Outpatient MHIE MHIE [id number] Memoria 09:20:00 09:20:00 33 favio Carey 2022-02-09 2022-02-09 Ambulatory nullFlavo MHMG [id number] Memoria 19:40:00 19:40:00 Pre-Reg r Primary 33 l Vilma Kim 2022-02-09 2022-02-09 Outpatient Clement, MHMG MHMG [id number] 14:40:00 14:40:00 Jerecia 33 [place] 2021-09-29 2021-09-30 Outpatient nullFlavo MHMG [id number] [facility] 14:00:00 04:59:59 r Primary 32 l [facility] 2021-09-29 2021-09-29 Outpatient Clement, MG MHMG [id number] 09:00:00 23:59:59 Jerecia 32 [place] 2021-09-29 2021-09-29 Outpatient MHIE MHIE [id number] Memoria 09:00:00 09:00:00 32 favio Carey 2021-09-21 2021-09-21 Ambulatory nullFlavo MHMG [id number] Memoria 13:40:00 13:40:00 Pre-Reg r Primary 31 l [facility] 2021-09-21 2021-09-21 Outpatient MHIE MHIE [id number] Memoria 08:40:00 08:40:00 31 favio Carey 2021-09-21 2021-09-21 Outpatient Vaughan, MHMG MHMG [id number] 08:40:00 08:40:00 Jerecia 31 [place] 2021-08-05 2021-08-07 Phone nullFlavo MHMG [id number] Memoria 19:09:03 04:59:59 Message r Primary 24 l Vilma [place] Kim 2021-08-05 2021-08-06 Outpatient MHMG MHMG [id number] 14:09:03 23:59:59 24 2021-06-08 2021-06-08 Office Dominique, 1.2.840.1 [id number] Methodi 11:15:00 11:32:46 Visit Anish Méndez 33257.1.1 [id number] s t 3.430.2.7 Hospit a .3.229709 l .8 2021-06-08 2021-06-08 RefSusie Graham 1.2.840.1 [id number] Methodi 00:00:00 00:00:[address] 3.430.2.7 Hospit a .3.614238 l .8 2021-03-23 2021-03-24 Outpatient nullFlavo MHMG [id number] Memoria 19:40:00 05:59:59 r Primary 30 l [facility] 2021-03-23 2021-03-23 Outpatient Clement MHMG MHMG [id number] 13:40:00 23:59:59 Jerecia 30 [place] 2021-03-23 2021-03-23 Outpatient MHIE MHIE [id number] [facility]oria 13:40:00 13:40:00 30 favio [place] 2021-01-20 2021-01-22 Phone nullFlavo MHMG [id number] Memoria 13:50:09 04:59:59 Message r Primary 23 l [facility] 2021-01-20 2021-01-21 Outpatient MHMG MHMG [id number] 08:50:09 23:59:59 23 2021-01-13 2021-01-14 Outpatient nullFlavo MHMG [id number] Memoria 16:40:00 04:59:59 [facility] 2021-01-13 2021-01-13 Outpatient Clement MHMG MHMG [id number] 11:40:00 23:59:59 Jerecia 29 [place] 2021-01-13 2021-01-13 Ambulatory nullFlavo MHMG [id number] Memoria 13:20:00 13:20:00 Pre-Reg r Primary 28 l [facility] 2021-01-13 2021-01-13 Outpatient MHIE MHIE [id number] Memoria 11:40:00 11:40:00 29 favio Carey 2021-01-13 2021-01-13 Outpatient MHIE MHIE [id number] Memoria 08:20:00 08:20:00 28 favio [place] 2021-01-13 2021-01-13 Outpatient Tarik Morocho MHMG MHMG [id number] 08:20:00 08:20:00 28 2020-11-26 2020-11-28 Phone nullFlavo MHMG [id number] Memoria 20:49:56 04:59:59 Message r Primary 22 [facility] 2020-11-26 2020-11-27 Outpatient MHMG MHMG [id number] 15:49:56 23:59:59 22 2020-11-21 2020-11-22 Outpatient nullFlavo MHMG [id number] Memoria 12:00:00 04:59:59 r Primary 27 [facility] 2020-11-21 2020-11-21 [facility] [id number] 07:00:00 23:59:59 Jerecia 27 [place] 2020-11-21 2020-11-21 Outpatient MHIE MHIE [id number] Memoria 07:00:00 07:00:00 27 favio [place] 2020-08-18 2020-08-20 Phone nullFlavo MHMG [id number] Memoria 18:46:29 04:59:59 Message r Primary 21 [facility] 2020-08-18 2020-08-19 Outpatient MHMG MHMG [id number] 13:46:29 23:59:59 21 2020-06-18 2020-06-20 Phone nullFlavo MHMG [id number] Memoria 17:43:22 05:59:59 Message r Primary 20 [facility] 2020-06-18 2020-06-19 Outpatient MHMG MHMG [id number] 11:43:22 23:59:59 20 2020-06-18 2020-06-19 Outpatient nullFlavo MHMG [id number] Memoria 14:20:00 05:59:59 r Primary 26 [facility] 2020-06-18 2020-06-18 Outpatient Clement MG MHMG [id number] 08:20:00 23:59:59 Jerecia 26 [place] 2020-06-18 2020-06-18 Outpatient MHIE MHIE [id number] Memoria 08:20:00 08:20:00 26 favio Carey 2020-05-06 2020-05-08 Phone nullFlavo MHMG [id number] Memoria 23:26:25 05:59:59 Message r Primary 19 l Vilma Aureliomeño Kim 2020-05-06 2020-05-07 Outpatient MHMG MHMG [id number] 17:26:25 23:59:59 19 2020-03-19 2020-03-20 Outpatient nullFlavo MHMG [id number] Memoria 15:20:00 05:59:59 r Primary 25 l Vil[facility] 2020-03-19 2020-03-19 Outpatient Clement, MHMG MHMG [id number] 09:20:00 23:59:59 Jerecia 25 [place] 2020-03-19 2020-03-19 Outpatient MHIE MHIE [id number] Memoria 09:20:00 09:20:00 25 favio Carey 2019-04-16 2019-04-17 Outpatient nullFlavo MHMG [id number] Memoria 14:20:00 05:59:59 r [facility] 2019-04-16 2019-04-16 Outpatient Clement, MG MHMG [id number] 08:20:00 23:59:59 Jerecia 24 [place] 2019-04-16 2019-04-16 Outpatient MHIE MHIE [id number] Memoria 08:20:00 08:20:00 24 favio Carey 2019-01-16 2019-01-17 Outpatient nullFlavo MHMG [id number] Memoria 16:00:00 04:59:59 r Primary 23 l [facility] 2019-01-16 2019-01-16 Outpatient Clement MHMG MHMG [id number] 11:00:00 23:59:59 Jerecia 23 [place] 2019-01-16 2019-01-16 Outpatient MHIE MHIE [id number] Memoria 11:00:00 11:00:00 23 favio Carey 2019 2019-01-14 Phone nullFlavo MHMG [id number] Memoria 19:23:59 04:59:59 Message r Primary 18 l [facility] 2019 2019-01-13 Outpatient MHMG MHMG [id number] 14:23:59 23:59:59 18 2018-11-09 2018-11-11 Phone nullFlavo MHMG [id number] Memoria 13:38:58 04:59:59 Message r Primary 17 favio [facility] 2018-11-09 2018-11-10 Outpatient MHMG MHMG [id number] 08:38:58 23:59:59 17 2018-10-16 2018-10-16 Ambulatory nullFlavo MHMG [id number] Memoria 20:00:00 20:00:00 Pre-Reg r Primary 22 favio [facility] 2018-10-16 2018-10-16 Outpatient MHIE MHIE [id number] Memoria 15:00:00 15:00:00 22 favio Carey 2018-10-16 2018-10-16 Outpatient Clement, MHMG MHMG [id number] 15:00:00 15:00:00 Jerecia Tram Lawrence 2018-09-28 2018-09-30 Phone nullFlavo MHMG [id number] Memoria 13:39:39 04:59:59 Message r Primary 16 favio [facility] 2018-09-28 2018-09-29 Outpatient MHMG MHMG [id number] 08:39:39 23:59:59 16 2018-07-17 2018-07-18 Outpatient nullFlavo MHMG [id number] Memoria 16:20:00 04:59:59 r Primary 21 favio [facility] 2018-07-17 2018-07-17 Outpatient Clement, MHMG MHMG [id number] 11:20:00 23:59:59 Jerecia Dalton Lawrence 2018-07-17 2018-07-17 Outpatient MHIE MHIE [id number] Memoria 11:20:00 11:20:00 21 favio Carey 2018-07-05 2018-07-07 Phone nullFlavo MHMG [id number] Memoria 14:53:00 04:59:59 Message r Primary 15 favio [facility] 2018-07-05 2018-07-06 Outpatient MHMG MHMG [id number] 09:53:00 23:59:59 15 2018-04-19 2018-04-20 Outpatient nullFlavo MHMG [id number] Memoria 20:20:00 05:59:59 r Primary 20 l [facility] 2018-04-19 2018-04-19 Outpatient Imer, MHMG MHMG [id number] 14:20:00 23:59:59 Dionne 20 2018-04-19 2018-04-19 Outpatient MHIE MHIE [id number] Memoria 14:20:00 14:20:00 20 [place] 2018-02-01 2018-02-02 Outpatient nullFlavo MHMG [id number] Memoria 15:20:00 04:59:59 r Primary 19 l [facility] 2018-02-01 2018-02-01 Outpatient Vivi [facility] MHMG [id number] 10:20:00 23:59:59 Art L 19 2018-02-01 2018-02-01 Outpatient MHIE MHIE [id number] Memoria 10:20:00 10:20:00 19 favio Carey 2017-11-23 2017-11-25 Phone nullFlavo MHMG [id number] Memoria 15:06:00 04:59:59 Message r Primary 14 l [facility] 2017-11-23 2017-11-24 Outpatient MHMG MHMG [id number] 10:06:00 23:59:59 14 2017-10-11 2017-10-13 Phone nullFlavo MHMG [id number] Memoria 19:18:00 04:59:59 Message r Primary 13 l [facility] 2017-10-11 2017-10-13 Phone nullFlavo MHMG [id number] Memoria 19:09:00 04:59:59 Message r Primary 12 l [facility] 2017-10-11 2017-10-12 Outpatient MHMG MHMG [id number] 14:18:00 23:59:59 13 2017-10-11 2017-10-12 Outpatient MHMG MHMG [id number] 14:09:00 23:59:59 12 2017-07-26 2017-07-27 Outpatient nullFlavo MHMG [id number] Memoria 15:00:00 04:59:59 r Primary 18 l [facility] 2017-07-26 2017-07-26 Outpatient Vivi [facility] MHMG [id number] 10:00:00 23:59:59 Art L 18 2017-07-26 2017-07-26 Outpatient MHIE MHIE [id number] Memoria 10:00:00 10:00:00 18 favio Aurelio 2017-07-04 2017-07-04 Ambulatory nullFlavo MHMG [id number] Memoria 15:20:00 15:20:00 Pre-Reg r Primary 17 l [facility] 2017-07-04 2017-07-04 Outpatient MHIE MHIE [id number] Memoria 10:20:00 10:20:00 17 favio Aurelio 2017-07-04 2017-07-04 Outpatient Vivi, MHMG MHMG [id number] 10:20:00 10:20:00 Art L 17 2017-04-08 2017-04-10 Phone nullFlavo MHMG [id number] Memoria 16:07:00 05:59:59 Message r Primary 11 l Vil[facility] 2017-04-08 2017-04-09 Outpatient MHMG MHMG [id number] 10:07:00 23:59:59 11 2017-02-28 2017-02-28 Outpatient MHIE MHIE [id number] Memoria 09:20:00 09:20:00 16 favio Carey 2017-01-31 2017-01-31 Outpatient MHIE MHIE [id number] Memoria 10:20:00 10:20:00 15 favio Carey 2016-11-09 2016-11-09 Outpatient MHIE MHIE [id number] Memoria 08:00:00 08:00:00 14 favio Carey 2016-11-01 2016-11-01 Outpatient MHIE MHIE [id number] Memoria 08:40:00 08:40:00 13 favio Carey 2016-08-02 2016-08-02 Outpatient MHIE MHIE [id number] Memoria 09:20:00 09:20:00 12 favio Carey 2016-07-20 2016-07-20 Outpatient MHIE MHIE [id number] Memoria 07:40:00 07:40:00 10 favio Carey 2016-05-18 2016-05-18 Outpatient MHIE MHIE [id number] Memoria 09:20:00 09:20:00 11 favio Carey 2016-04-21 2016-04-21 Outpatient MHIE MHIE [id number] Memoria 07:45:00 07:45:00 09 favio Carey 2016-01-07 2016-01-07 Outpatient MHIE MHIE [id number] Memoria 08:30:00 08:30:00 04 favio Craey 2015-12-30 2015-12-30 Outpatient MHIE MHIE [id number] Memoria 08:00:00 08:00:00 08 favio Carey 2015-11-24 2015-11-24 Outpatient MHIE MHIE [id number] Memoria 09:30:00 09:30:00 06 favio Carey 2015-10-22 2015-10-22 Outpatient MHIE MHIE [id number] Memoria 10:00:00 10:00:00 07 favio Carey 2015-10-03 2015-10-03 Outpatient MHIE MHIE [id number] Memoria 09:00:00 09:00:00 05 favio Carey 2015-07-07 2015-07-07 Outpatient MHIE MHIE [id number] Memoria 09:15:00 09:15:00 03 favio Carey 2015-04-11 2015-04-11 Outpatient MHIE MHIE [id number] Memoria 15:15:00 15:15:00 02 favio Carey 2015-03-19 2015-03-19 Outpatient MHIE MHIE [id number] Memoria 14:30:00 14:30:00 01 favio Carey 2015-01-22 2015-01-22 Outpatient MHIE MHIE [id number] Memoria 13:45:00 13:45:00 00 favio Carey 2013-12-15 2013-12-16 Inpatient [facility] [id number] Memoria 09:10:00 20:00:00 umesh Carey 65 l [facility] 2013-12-15 2013-12-16 Outpatient Montemayor, 2.16.840. [id number]. [id number] 04:10:00 15:00:00 Tomi Galloway [id number] 3.615.0.1 5.0.101 01 Results Test Description Test Time Test Comments Results Result Comments Source [facility] 2021-09-29 05:00:00 Test Item Value Reference Range Interpretation Comme nts Iron (test code = Iron) 100 45-160 [facility]2022-06-07 05:00:00 Test Item Value Reference Range Interpretation Comments Glucose Lvl (test code = Glucose Lvl) 100 65-99 [facility]2022-06-07 05:00:00 Test Item Value Reference Range Interpretation Comments BUN (test code = BUN) 22 7-25 [place] 637662-06-07 05:00:00 Test Item Value Reference Range Interpretation Comments Creatinine Lvl (test code = Creatinine 1.16 0.60-0.93 Lvl) [facility]2022-06-07 05:00:00 Test Item Value Reference Range Interpretation Comments eGFR NON-AFR. PRYDEINIG (test code = 45 eGFR NON-AFR. PRYDEINIG) [facility]2022-06-07 05:00:00 Test Item Value Reference Range Interpretation Comments eGFR (test code = eGFR 52 ) [facility]2022-06-07 05:00:00 Test Item Value Reference Range Interpretation Comments B/C Ratio (test code = B/C Ratio) 19 6-22 [place] 637662-06-07 05:00:00 Test Item Value Reference Range Interpretation Comments Sodium Lvl (test code = Sodium Lvl) 135 135-146 [facility]2022-06-07 05:00:00 Test Item Value Reference Range Interpretation Comments Potassium Lvl (test code = Potassium 4.3 3.5-5.3 Lvl) [facility]2022-06-07 05:00:00 Test Item Value Reference Range Interpretation Comments Chloride Lvl (test code = Chloride Lvl) 102 98-110 [facility]2022-06-07 05:00:00 Test Item Value Reference Range Interpretation Comments CO2 (test code = CO2) 24 20-32 [facility]2022-06-07 05:00:00 Test Item Value Reference Range Interpretation Comments Calcium Lvl (test code = Calcium Lvl) 9.3 8.6-10.4 [place] 637662-06-07 05:00:00 Test Item Value Reference Range Interpretation Comments Total Protein (test code = Total 6.5 6.1-8.1 Protein) [facility]2022-06-07 05:00:00 Test Item Value Reference Range Interpretation Comments Albumin Lvl (test code = Albumin Lvl) 4.2 3.6-5.1 [place] 637662-06-07 05:00:00 Test Item Value Reference Range Interpretation Comments Globulin (test code = Globulin) 2.3 1.9-3.7 [place] 637662-06-07 05:00:00 Test Item Value Reference Range Interpretation Comments A/G Ratio (test code = A/G Ratio) 1.8 1.0-2.5 [place] 637662-06-07 05:00:00 Test Item Value Reference Range Interpretation Comments Bili Total (test code = Bili Total) 0.4 0.2-1.2 [place] 637662-06-07 05:00:00 Test Item Value Reference Range Interpretation Comments Alk Phos (test code = Alk Phos) 77 37-153 [facility]2022-06-07 05:00:00 Test Item Value Reference Range Interpretation Comments ASPARTATE TRANSAMINASE (test code = 12 10-35 ASPARTATE TRANSAMINASE) [facility]2022-06-07 05:00:00 Test Item Value Reference Range Interpretation Comments ALANINE AMINOTRANSFERASE (test code = 14 6-29 ALANINE AMINOTRANSFERASE) [place] 637662-06-07 05:00:00 Test Item Value Reference Range Interpretation Comments Vitamin D, 25-OH, Total (test code = 43 30-100 Vitamin D, 25-OH, Total) [facility]AVG[facility]F6778[facility]40-87 05:00:00 Test Item Value Reference Range Interpretation Comments WBC X 10x3 (test code = WBC X 10x3) 5.6 3.8-10.8 [place] 119602-06-07 05:00:00 Test Item Value Reference Range Interpretation Comments RBC X 10x6 (test code = RBC X 10x6) 4.11 3.80-5.10 [place] 119602-06-07 05:00:00 Test Item Value Reference Range Interpretation Comments Hgb (test code = Hgb) 11.2 11.7-15.5 [place] 119602-06-07 05:00:00 Test Item Value Reference Range Interpretation Comments Hct (test code = Hct) 33.9 35.0-45.0 [place] 119602-06-07 05:00:00 Test Item Value Reference Range Interpretation Comments MCV (test code = MCV) 82.5 80.0-100.0 [facility] CenterQlqyxioBKBOXPLKQM7971-78-83 05:00:00 Test Item Value Reference Range Interpretation Comments MCH (test code = MCH) 27.3 pg 27.0-33.0 [facility] CenterWwrztyrHWVEAOBBOY9917-08-12 05:00:00 Test Item Value Reference Range Interpretation Comments MCHC (test code = MCHC) 33.0 32.0-36.0 [facility] CenterMfwzjbwCYLSEQONLX7004-20-31 05:00:00 Test Item Value Reference Range Interpretation Comments RDW (test code = RDW) 12.6 11.0-15.0 [facility] CenterCiqafizBVODWQLQLQ8687-02-53 05:00:00 Test Item Value Reference Range Interpretation Comments Platelet (test code = Platelet) 197 140-400 [facility] CenterVxygdteYWZKJCHDLQ8790-22-24 05:00:00 Test Item Value Reference Range Interpretation Comments MPV (test code = MPV) 11.9 7.5-12.5 [facility] CenterLjwcialDFGEEJRYPK0128-90-26 05:00:00 Test Item Value Reference Range Interpretation Comments Neutrophils # (test code = Neutrophils 3349 9055-0376 #) [facility] CenterKtjbsqpOWRQDBSSLK8411-18-43 05:00:00 Test Item Value Reference Range Interpretation Comments Lymphocytes # (test code = Lymphocytes 5394 006-8417 #) [facility] CenterWimpppfFJLPQKIVGG1180-79-57 05:00:00 Test Item Value Reference Range Interpretation Comments Monocytes # (test code = Monocytes #) 700 200-950 [facility] CenterVjpsyeeDVNAHQGBYQ3388-30-79 05:00:00 Test Item Value Reference Range Interpretation Comments Eosinophils # (test code = Eosinophils 190 15-500 #) [facility] CenterZmrvoflQLDVZITXHR3672-52-02 05:00:00 Test Item Value Reference Range Interpretation Comments Basophils # (test code 39 See_Comment [Aut omated message] The = Basophils #) system which generated this result tra nsmitted reference range : <=200. The reference r mary was not used to int erpret this result as normal/abnormal . [facility] CenterEajrcqeGQSNFTLZWH2817-24-05 05:00:00 Test Item Value Reference Range Interpretation Comments Segs (test code = Segs) 59.8 [facility] CenterMsmtaskNPUXEZXKMR7799-30-60 05:00:00 Test Item Value Reference Range Interpretation Comments Lymphocytes (test code = Lymphocytes) 23.6 [facility] CenterMzglexnURRQOLZPXE5534-52-41 05:00:00 Test Item Value Reference Range Interpretation Comments Monocytes (test code = Monocytes) 12.5 [facility] CenterIctvxsjXTBARHPHGY9527-78-23 05:00:00 Test Item Value Reference Range Interpretation Comments Eosinophils (test code = Eosinophils) 3.4 [facility] CenterPkceyhaEWCPJDQZBB1690-84-56 05:00:00 Test Item Value Reference Range Interpretation Comments Basophils (test code = Basophils) 0.7 [facility]679[facility]56[facility]52 05:00:00 Test Item Value Reference Range Interpretation Comments Chol (test code = Chol) 180 [facility] AllianceMfoecbfMAZNQI0868-32-56 05:00:00 Test Item Value Reference Range Interpretation Comments HDL (test code = HDL) 56 [facility] AllianceZmwqjmpHRZOZI8192-42-32 05:00:00 Test Item Value Reference Range Interpretation Comments Trig (test code = Trig) 118 [facility] AllianceNmsqfwdYLOQOK9335-18-47 05:00:00 Test Item Value Reference Range Interpretation Comments LDL (Calculated) (test code = LDL 103 (Calculated)) [facility] AllianceKnrxwahRIVQNW0879-62-01 05:00:00 Test Item Value Reference Range Interpretation Comments CHD Risk (test code = CHD Risk) 3.2 [facility] AllianceQtydekkPSXJXE2200-46-77 05:00:00 Test Item Value Reference Range Interpretation Comments Non HDL Chol (test code = Non HDL Chol) 124 [facility] 12 xkfu6698-00-39 00:59:13 Test Item Value Reference Range Interpretation Comments Ventricular rate (test code = 253) Atrial rate (test code = 255) SC interval (test code = 266) QRSD interval (test code = 260) QT interval (test code = 264) QTC interval (test code = 265) P axis 1 (test code = 267) QRS axis 1 (test code = 268) T wave axis (test code = 270) EKG impression (test Sinus bradycardia with code = 273) 1st degree AV block-Possible Anterior infarct , age undetermined-Abnormal ECG-No previous ECGs available-Electronical ly Signed By Anish Dominique MD ([id number]) on 06/08/2021 6:59:11 PM [facility]2021-11-29 20:44:00 Test Item Value Reference Range Interpretation Comments Iron (test code = Iron) 23 45-160 [facility]2021-11-29 20:44:00 Test Item Value Reference Range Interpretation Comments Vitamin B12 Lvl (test code = Vitamin 564 109-3747 B12 Lvl) [place] 637661-11-29 20:44:00 Test Item Value Reference Range Interpretation Comments Glucose Lvl (test code = Glucose Lvl) 94 65-139 [place] 637661-11-29 20:44:00 Test Item Value Reference Range Interpretation Comments BUN (test code = BUN) 21 7- [place] 637661-11-29 20:44:00 Test Item Value Reference Range Interpretation Comments Creatinine Lvl (test code = Creatinine 1.01 0.60-0.93 Lvl) [place] 637661-11-29 20:44:00 Test Item Value Reference Range Interpretation Comments eGFR NON-AFR. PRYDEINIG (test code = 53 eGFR NON-AFR. PRYDEINIG) [place] 637661-11-29 20:44:00 Test Item Value Reference Range Interpretation Comments eGFR (test code = eGFR 62 ) [place] 637661-11-29 20:44:00 Test Item Value Reference Range Interpretation Comments B/C Ratio (test code = B/C Ratio) 21 6- [facility]2021-11-29 20:44:00 Test Item Value Reference Range Interpretation Comments Sodium Lvl (test code = Sodium Lvl) 136 135-146 [place] 637661-11-29 20:44:00 Test Item Value Reference Range Interpretation Comments Potassium Lvl (test code = Potassium 4.3 3.5-5.3 Lvl) [place] 637661-11-29 20:44:00 Test Item Value Reference Range Interpretation Comments Chloride Lvl (test code = Chloride Lvl) 99 98-110 [place] 637661-11-29 20:44:00 Test Item Value Reference Range Interpretation Comments CO2 (test code = CO2) 27 20-32 [place] 637661-11-29 20:44:00 Test Item Value Reference Range Interpretation Comments Calcium Lvl (test code = Calcium Lvl) 9.4 8.6-10.4 [place] 637661-11-29 20:44:00 Test Item Value Reference Range Interpretation Comments Total Protein (test code = Total 6.8 6.1-8.1 Protein) [place] 637661-11-29 20:44:00 Test Item Value Reference Range Interpretation Comments Albumin Lvl (test code = Albumin Lvl) 4.3 3.6-5.1 [place] 637661-11-29 20:44:00 Test Item Value Reference Range Interpretation Comments Globulin (test code = Globulin) 2.5 1.9-3.7 [address]11-29 20:44:00 Test Item Value Reference Range Interpretation Comments A/G Ratio (test code = A/G Ratio) 1.7 1.0-2.[address]11-29 20:44:00 Test Item Value Reference Range Interpretation Comments Bili Total (test code = Bili Total) 0.4 0.2-1.2 [place] 637661-11-29 20:44:00 Test Item Value Reference Range Interpretation Comments Alk Phos (test code = Alk Phos) 84 37-153 [place] 637661-11-29 20:44:00 Test Item Value Reference Range Interpretation Comments ASPARTATE TRANSAMINASE (test code = 20 10-35 ASPARTATE TRANSAMINASE) [address]11-29 20:44:00 Test Item Value Reference Range Interpretation Comments ALANINE AMINOTRANSFERASE (test code = 16 6-29 ALANINE AMINOTRANSFERASE) [address]11-29 20:44:00 Test Item Value Reference Range Interpretation Comments Vitamin D, 25-OH, Total (test code = 27 30-100 Vitamin D, 25-OH, Total) [place] 119601-11-29 20:44:00 Test Item Value Reference Range Interpretation Comments WBC X 10x3 (test code = WBC X 10x3) 13.1 3.8-10.[address]11-29 20:44:00 Test Item Value Reference Range Interpretation Comments RBC X 10x6 (test code = RBC X 10x6) 4.07 3.80-5.10 [place] 119601-11-29 20:44:00 Test Item Value Reference Range Interpretation Comments Hgb (test code = Hgb) 10.9 11.7-15.5 [place] 119601-11-29 20:44:00 Test Item Value Reference Range Interpretation Comments Hct (test code = Hct) 33.4 35.0-45.0 [place] 119601-11-29 20:44:00 Test Item Value Reference Range Interpretation Comments MCV (test code = MCV) 82.1 80.0-100.0 [place] 119601-11-29 20:44:00 Test Item Value Reference Range Interpretation Comments MCH (test code = MCH) 26.8 pg 27.0-33.0 [place] 119601-11-29 20:44:00 Test Item Value Reference Range Interpretation Comments MCHC (test code = MCHC) 32.6 32.0-36.0 [facility] CenterDwjvtpdFBTISEHPDG5761-87-73 20:44:00 Test Item Value Reference Range Interpretation Comments RDW (test code = RDW) 12.7 11.0-15.0 [place] 119601-11-29 20:44:00 Test Item Value Reference Range Interpretation Comments Platelet (test code = Platelet) 216 140-400 [facility] CenterDgmansfLORANWYHRQ9410-66-47 20:44:00 Test Item Value Reference Range Interpretation Comments MPV (test code = MPV) 12.8 7.5-12.5 [place] 119601-11-29 20:44:00 Test Item Value Reference Range Interpretation Comments Neutrophils # (test code = Neutrophils 9969 2585-8696 #) [facility] CenterVlkjbbfYNLUPSECYX1168-97-99 20:44:00 Test Item Value Reference Range Interpretation Comments Lymphocytes # (test code = Lymphocytes 2934 349-1654 #) [facility] CenterVrbjwyfOSEPIKTUNQ8507-74-37 20:44:00 Test Item Value Reference Range Interpretation Comments Monocytes # (test code = Monocytes #) 1087 200-950 [place] 119601-11-29 20:44:00 Test Item Value Reference Range Interpretation Comments Eosinophils # (test code = Eosinophils 183 15-500 #) [facility] CenterUoltialMGLJPTJJIA8517-36-62 20:44:00 Test Item Value Reference Range Interpretation Comments Basophils # (test code 52 See_Comment [Aut omated message] The = Basophils #) system which generated this result tra nsmitted reference range : <=200. The reference r mary was not used to int erpret this result as normal/abnormal . [facility] CenterBlkulztCGUIEDTVZF9895-86-51 20:44:00 Test Item Value Reference Range Interpretation Comments Segs (test code = Segs) 76.1 [place] 119601-11-29 20:44:00 Test Item Value Reference Range Interpretation Comments Lymphocytes (test code = Lymphocytes) 13.8 [place] 119601-11-29 20:44:00 Test Item Value Reference Range Interpretation Comments Monocytes (test code = Monocytes) 8.3 [place] 119601-11-29 20:44:00 Test Item Value Reference Range Interpretation Comments Eosinophils (test code = Eosinophils) 1.4 [place] 119601-11-29 20:44:00 Test Item Value Reference Range Interpretation Comments Basophils (test code = Basophils) 0.4 [facility]2021-02-24 15:17:00 Test Item Value Reference Range Interpretation Comments Glucose Lvl (test code = Glucose Lvl) 96 65-99 [facility]2021-02-24 15:17:00 Test Item Value Reference Range Interpretation Comments BUN (test code = BUN) 22 7-25 [place] 637661-02-24 15:17:00 Test Item Value Reference Range Interpretation Comments Creatinine Lvl (test code = Creatinine 1.22 0.60-0.93 Lvl) [facility]2021-02-24 15:17:00 Test Item Value Reference Range Interpretation Comments eGFR NON-AFR. PRYDEINIG (test code = 43 eGFR NON-AFR. PRYDEINIG) [facility]2021-02-24 15:17:00 Test Item Value Reference Range Interpretation Comments eGFR (test code = eGFR 49 ) [facility]2021-02-24 15:17:00 Test Item Value Reference Range Interpretation Comments B/C Ratio (test code = B/C Ratio) 18 6-22 [facility]2021-02-24 15:17:00 Test Item Value Reference Range Interpretation Comments Sodium Lvl (test code = Sodium Lvl) 141 135-146 [facility]2021-02-24 15:17:00 Test Item Value Reference Range Interpretation Comments Potassium Lvl (test code = Potassium 4.5 3.5-5.3 Lvl) [facility]2021-02-24 15:17:00 Test Item Value Reference Range Interpretation Comments Chloride Lvl (test code = Chloride Lvl) 108 98-110 [place] 637661-02-24 15:17:00 Test Item Value Reference Range Interpretation Comments CO2 (test code = CO2) 26 20-32 [place] 637661-02-24 15:17:00 Test Item Value Reference Range Interpretation Comments Calcium Lvl (test code = Calcium Lvl) 8.9 8.6-10.4 [place] 637661-02-24 15:17:00 Test Item Value Reference Range Interpretation Comments Total Protein (test code = Total 6.5 6.1-8.1 Protein) [place] 637661-02-24 15:17:00 Test Item Value Reference Range Interpretation Comments Albumin Lvl (test code = Albumin Lvl) 4.0 3.6-5.1 [place] 637661-02-24 15:17:00 Test Item Value Reference Range Interpretation Comments Globulin (test code = Globulin) 2.5 1.9-3.7 [place] 637661-02-24 15:17:00 Test Item Value Reference Range Interpretation Comments A/G Ratio (test code = A/G Ratio) 1.6 1.0-2.5 [place] 637661-02-24 15:17:00 Test Item Value Reference Range Interpretation Comments Bili Total (test code = Bili Total) 0.3 0.2-1.2 [place] 637661-02-24 15:17:00 Test Item Value Reference Range Interpretation Comments Alk Phos (test code = Alk Phos) 80 37-153 [facility]2021-02-24 15:17:00 Test Item Value Reference Range Interpretation Comments ASPARTATE TRANSAMINASE (test code = 14 10-35 ASPARTATE TRANSAMINASE) [place] 637661-02-24 15:17:00 Test Item Value Reference Range Interpretation Comments ALANINE AMINOTRANSFERASE (test code = 14 6-29 ALANINE AMINOTRANSFERASE) [place] 119601-02-24 15:17:00 Test Item Value Reference Range Interpretation Comments WBC X 10x3 (test code = WBC X 10x3) 6.0 3.8-10.8 [place] 119601-02-24 15:17:00 Test Item Value Reference Range Interpretation Comments RBC X 10x6 (test code = RBC X 10x6) 4.01 3.80-5.10 [facility] CenterSpgxqtdXFOZQQZBLH6273-17-55 15:17:00 Test Item Value Reference Range Interpretation Comments Hgb (test code = Hgb) 10.8 11.7-15.5 [facility] CenterFmorietXFGJFAHUDQ4166-32-76 15:17:00 Test Item Value Reference Range Interpretation Comments Hct (test code = Hct) 33.6 35.0-45.0 [facility] CenterQgyauchDCEXGMRZQD6060-94-78 15:17:00 Test Item Value Reference Range Interpretation Comments MCV (test code = MCV) 83.8 80.0-100.0 [facility] CenterUrbqvihZATIQWEJZP9696-77-59 15:17:00 Test Item Value Reference Range Interpretation Comments MCH (test code = MCH) 26.9 pg 27.0-33.0 [facility] CenterAjlwqjyTGDQNOKAPO2855-90-46 15:17:00 Test Item Value Reference Range Interpretation Comments MCHC (test code = MCHC) 32.1 32.0-36.0 [facility] CenterVwmuktmIHPDTNIVCF6062-55-01 15:17:00 Test Item Value Reference Range Interpretation Comments RDW (test code = RDW) 12.4 11.0-15.0 [facility] CenterKvkzdjfPNOWDPZOCE9022-71-44 15:17:00 Test Item Value Reference Range Interpretation Comments Platelet (test code = Platelet) 169 140-400 [facility] CenterQoqslhmVGORQZVBHX2883-22-73 15:17:00 Test Item Value Reference Range Interpretation Comments MPV (test code = MPV) 12.6 7.5-12.5 [facility] CenterXyrrxhoCKLJRUOQVX3707-21-83 15:17:00 Test Item Value Reference Range Interpretation Comments Neutrophils # (test code = Neutrophils 3738 8034-9852 #) [facility] CenterAaaoemgOWYWPNKTFP9158-85-95 15:17:00 Test Item Value Reference Range Interpretation Comments Lymphocytes # (test code = Lymphocytes 8327 647-6294 #) [facility] CenterInfwrrmPOXFGYRRVW7290-11-01 15:17:00 Test Item Value Reference Range Interpretation Comments Monocytes # (test code = Monocytes #) 528 200-950 [facility] CenterCvkfbevJAYMNDJYGN5644-45-01 15:17:00 Test Item Value Reference Range Interpretation Comments Eosinophils # (test code = Eosinophils 396 15-500 #) [place] [address]-02-24 15:17:00 Test Item Value Reference Range Interpretation Comments Basophils # (test code 60 See_Comment [Aut omated message] The = Basophils #) system which generated this result tra nsmitted reference range : <=200. The reference r mary was not used to int erpret this result as normal/abnormal . [facility] CenterBvmmrleYRAEYTOURK0265-22-38 15:17:00 Test Item Value Reference Range Interpretation Comments Segs (test code = Segs) 62.3 [facility] CenterCzcoomwTCWRVRFIFO8298-97-57 15:17:00 Test Item Value Reference Range Interpretation Comments Lymphocytes (test code = Lymphocytes) 21.3 [facility] CenterUilbzszMOPWBRKZNZ0523-04-27 15:17:00 Test Item Value Reference Range Interpretation Comments Monocytes (test code = Monocytes) 8.8 [facility] CenterXkgzaafTUJSMIDDNZ4060-64-90 15:17:00 Test Item Value Reference Range Interpretation Comments Eosinophils (test code = Eosinophils) 6.6 [facility] CenterPrwvekqIEESOMXHUC5039-39-60 15:17:00 Test Item Value Reference Range Interpretation Comments Basophils (test code = Basophils) 1.0 [facility] CenterVbjvleoHXQNGXNOAW4828-77-91 15:17:00 Test Item Value Reference Range Interpretation Comments Sed Rate (test code = Sed Rate) 6 [facility]qp[facility]ifJGMKMVPAUB7897[facility] 15:17:00 Test Item Value Reference Range Interpretation Comments C-REACTIVE PROTEIN (test code = 4.4 C-REACTIVE PROTEIN) [facility] AllianceHjubpknTWCQRV1277-31-80 15:17:00 Test Item Value Reference Range Interpretation Comments Chol (test code = Chol) 188 [facility] HospitalEohdaonWXCDRB7306-96-87 15:17:00 Test Item Value Reference Range Interpretation Comments HDL (test code = HDL) 58 [facility] HospitalWnqavcxWZTAID2352-20-14 15:17:00 Test Item Value Reference Range Interpretation Comments Trig (test code = Trig) 61 [facility] AllianceZzbnrisTMKXJW4178-45-66 15:17:00 Test Item Value Reference Range Interpretation Comments LDL (Calculated) (test code = LDL 115 (Calculated)) [place] 940951-02-24 15:17:00 Test Item Value Reference Range Interpretation Comments CHD Risk (test code = CHD Risk) 3.2 [facility] HospitalVaapscwCLVPOJ6644-15-98 15:17:00 Test Item Value Reference Range Interpretation Comments Non HDL Chol (test code = Non HDL Chol) 130 [facility] AND [id number] 15:17:00 Test Item Value Reference Range Interpretation Comments UA Color (test code = UA Color) YELLOW [facility] AND [id number] 15:17:00 Test Item Value Reference Range Interpretation Comments UA Turbidity (test code = UA Turbidity) CLEAR [facility] AND [id number] 15:17:00 Test Item Value Reference Range Interpretation Comments UA Spec Grav (test code = UA Spec 1.012 1 1.001-1.035 Grav) [facility] AND [id number] 15:17:00 Test Item Value Reference Range Interpretation Comments UA pH (test code = UA pH) 5.5 1 5.0-8.0 [facility] AND [id number] 15:17:00 Test Item Value Reference Range Interpretation Comments UA Glucose (test code = UA Glucose) NEGATIVE [facility] AND [id number] 15:17:00 Test Item Value Reference Range Interpretation Comments UA Bili (test code = UA Bili) NEGATIVE [facility] AND [id number] 15:17:00 Test Item Value Reference Range Interpretation Comments UA Ketones (test code = UA Ketones) NEGATIVE [facility] AND [id number] 15:17:00 Test Item Value Reference Range Interpretation Comments UA Blood (test code = UA Blood) NEGATIVE [facility] AND [id number] 15:17:00 Test Item Value Reference Range Interpretation Comments UA Protein (test code = UA Protein) NEGATIVE [facility] AND [id number] 15:17:00 Test Item Value Reference Range Interpretation Comments UA Nitrite (test code = UA Nitrite) POSITIVE [facility] AND [id number] 15:17:00 Test Item Value Reference Range Interpretation Comments UA Leuk Est (test code = UA Leuk Est) 2+ [facility] AND [id number] 15:17:00 Test Item Value Reference Range Interpretation Comments UA WBC (test code = UA WBC) 40-60 [facility] AND [id number] 15:17:00 Test Item Value Reference Range Interpretation Comments UA RBC (test code = UA RBC) NONE SEEN [facility] AND [id number] 15:17:00 Test Item Value Reference Range Interpretation Comments UA Sq Epi (test code = UA Sq Epi) NONE SEEN [facility] AND [id number] 15:17:00 Test Item Value Reference Range Interpretation Comments UA Bacteria (test code = UA Bacteria) MANY [facility] AND [id number] 15:17:00 Test Item Value Reference Range Interpretation Comments UA Hyal Cast (test code = UA Hyal NONE SEEN Cast) [facility]2014-08-24 07:07:00 Test Item Value Reference Range Interpretation Comments eGFR (test code = eGFR) 75 [facility]2014-08-24 07:07:00 Test Item Value Reference Range Interpretation Comments Glucose Lvl (test code = Glucose Lvl) 100 70-99 [facility]2014-08-24 07:07:00 Test Item Value Reference Range Interpretation Comments BUN (test code = BUN) 15 -22 [facility]2014-08-24 07:07:00 Test Item Value Reference Range Interpretation Comments Creatinine Lvl (test code = Creatinine 0.8 0.5-1.4 Lvl) [facility]2014-08-24 07:07:00 Test Item Value Reference Range Interpretation Comments Sodium Lvl (test code = Sodium Lvl) 140 135-145 [facility]2014-08-24 07:07:00 Test Item Value Reference Range Interpretation Comments Potassium Lvl (test code = Potassium 3.9 3.5-5.1 Lvl) [facility]2014-08-24 07:07:00 Test Item Value Reference Range Interpretation Comments Chloride Lvl (test code = Chloride Lvl) 106 95-109 [facility]2014-08-24 07:07:00 Test Item Value Reference Range Interpretation Comments CO2 (test code = CO2) 24 24-32 [facility]2014-08-24 07:07:00 Test Item Value Reference Range Interpretation Comments AGAP (test code = AGAP) 13.9 10.0-20.0 [facility]2014-08-24 07:07:00 Test Item Value Reference Range Interpretation Comments Calcium Lvl (test code = Calcium Lvl) 8.8 8.5-10.5 [facility]2014-08-24 07:07:00 Test Item Value Reference Range Interpretation Comments Magnesium Lvl (test code = Magnesium 1.8 1.8-2.4 Lvl) [facility]2014-08-24 07:07:00 Test Item Value Reference Range Interpretation Comments Phosphorus (test code = Phosphorus) 4.2 2.5-4.5 [facility] CenterYkjupscBSQFCTAKJU5536-66-64 07:07:00 Test Item Value Reference Range Interpretation Comments Eosinophils # (test code 0.2 See_Comment [A utomated message] The = Eosinophils #) system wh h generated this result tra nsmitted reference range : <=0.5. The reference r mary was not used to int erpret this result as normal/abnormal . [facility] CenterPvkulcmKHAUXXZOWB0485-40-52 07:07:00 Test Item Value Reference Range Interpretation Comments Lymphocytes # (test code = Lymphocytes 2.1 1.0-5.5 #) [facility] CenterDahlxixKWJEGWZJSL6324-28-85 07:07:00 Test Item Value Reference Range Interpretation Comments Basophils # (test code 0.1 See_Comment [Aut omated message] The = Basophils #) system which generated this result tra nsmitted reference range : <=0.2. The reference r mary was not used to int erpret this result as normal/abnormal . [facility] CenterRmfdvppVWNSBTBITR2186-92-36 07:07:00 Test Item Value Reference Range Interpretation Comments Basophils (test code = 0.5 See_Comment [Aut omated message] The Basophils) system which ge nerated this result tra nsmitted reference range : <=1.0. The reference r mary was not used to int erpret this result as normal/abnormal . [facility] CenterOqfqnprQPGNPJXXGJ7681-48-12 07:07:00 Test Item Value Reference Range Interpretation Comments Eosinophils (test code = 1.6 See_Comment [A utomated message] The Eosinophils) system which ge nerated this result tra nsmitted reference range : <=4.0. The reference r mary was not used to int erpret this result as normal/abnormal . [facility] CenterRmwvoaeISUWRTMGUL0173-25-04 07:07:00 Test Item Value Reference Range Interpretation Comments Monocytes # (test code 0.9 See_Comment [Aut omated message] The = Monocytes #) system which generated this result tra nsmitted reference range : <=0.8. The reference r mary was not used to int erpret this result as normal/abnormal . [facility] CenterYdqxtqwLQSENQXFKM1046-16-56 07:07:00 Test Item Value Reference Range Interpretation Comments Lymphocytes (test code = Lymphocytes) 22.8 20.0-40.0 [facility] CenterBxewchyNWRZTIYQYO4519-56-43 07:07:00 Test Item Value Reference Range Interpretation Comments Segs-Bands # (test code = Segs-Bands #) 6.0 1.5-8.1 [facility] CenterLsdnwgsHSHVLQXFPB7312-98-80 07:07:00 Test Item Value Reference Range Interpretation Comments Monocytes (test code = Monocytes) 10.1 2.0-12.0 [facility] CenterUqbgtatPGWYAALDIH6738-76-20 07:07:00 Test Item Value Reference Range Interpretation Comments Segs (test code = Segs) 65.0 45.0-75.0 [facility] CenterZwwruqaTIGIRHIDAK4898-19-42 07:07:00 Test Item Value Reference Range Interpretation Comments MPV (test code = MPV) 11.2 7.4-10.4 [facility] CenterVfrcyhuZVMAVLBIKC4554-59-42 07:07:00 Test Item Value Reference Range Interpretation Comments Platelet (test code = Platelet) 145 133-450 [facility] CenterAatibsfDSZHSIUZES4121-10-18 07:07:00 Test Item Value Reference Range Interpretation Comments RDW (test code = RDW) 13.3 11.5-14.5 [facility] CenterTccpdrfSSUKVRZCKA8286-97-13 07:07:00 Test Item Value Reference Range Interpretation Comments MCH (test code = MCH) 28.5 pg 27.0-31.0 [facility] CenterNnpeuorQNLKZSUOPM0699-93-15 07:07:00 Test Item Value Reference Range Interpretation Comments Hgb (test code = Hgb) 12.8 12.0-16.0 [facility] CenterNwhihmpPRFJFEWNSR1273-84-28 07:07:00 Test Item Value Reference Range Interpretation Comments MCHC (test code = MCHC) 33.3 32.0-36.0 [facility] CenterQiqgbxiARUZHYMXUF9298-43-51 07:07:00 Test Item Value Reference Range Interpretation Comments Hct (test code = Hct) 38.5 36.0-48.0 [facility] CenterUdhxiwkPUAPODNKCZ7364-27-71 07:07:00 Test Item Value Reference Range Interpretation Comments RBC (test code = RBC) 4.50 4.20-5.40 [facility] CenterSaucfboKBLPRXPCYR5760-37-48 07:07:00 Test Item Value Reference Range Interpretation Comments MCV (test code = MCV) 85.6 80.0-98.0 [facility] CenterFysqclnYNVKSTCCGZ4290-34-25 07:07:00 Test Item Value Reference Range Interpretation Comments WBC (test code = WBC) 9.2 3.7-10.4 [facility] CenterBbefkrpBPTNKRTLLZ3624-83-55 16:55:00 Test Item Value Reference Range Interpretation Comments PTT (test code = PTT) 23.5 s 22.9-35.8 [facility] CenterEfuwugrWRCWADPPQF7438-76-43 16:55:00 Test Item Value Reference Range Interpretation Comments PT (test code = PT) 12.6 s 12.0-14.7 [facility] CenterKtijhpwILWJZZAYSM7445-57-48 16:55:00 Test Item Value Reference Range Interpretation Comments INR (test code = INR) 0.95 0.85-1.17 [facility] AND [id number] 10:33:54 Test Item Value Reference Range Interpretation Comments UA Turbidity (test code = Clear (12/15/13 5:33 UA Turbidity) AM) [facility] AND [id number] 10:33:54 Test Item Value Reference Range Interpretation Comments UA Color (test code = Yellow *NA*(12/15/13 UA Color) 5:33 AM) [facility] AND [id number] 10:33:54 Test Item Value Reference Range Interpretation Comments UA Protein (test code Negative (12/15/13 5:33 = UA Protein) AM) [facility] AND [id number] 10:33:54 Test Item Value Reference Range Interpretation Comments UA pH (test code = UA pH) 7.0 1 5.0-8.0 [facility] AND [id number] 10:33:54 Test Item Value Reference Range Interpretation Comments UA Spec Grav (test code = UA Spec 1.028 1 Grav) [facility] AND [id number] 10:33:54 Test Item Value Reference Range Interpretation Comments UA Bacteria (test code = UA Few /HPF Bacteria) [facility] AND [id number] 10:33:54 Test Item Value Reference Range Interpretation Comments UA RBC (test code = 0-2 /HPF See_Comment [Automa jane message] The UA RBC) system which ge nerated this result tra nsmitted reference range : <=2. The reference range was not used to interpr et this result as dada l/abnormal. [facility] [id number] 10:33:54 Test Item Value Reference Range Interpretation Comments UA Nitrite (test code Negative (12/15/13 5:33 = UA Nitrite) AM) [facility] AND [id number] 10:33:54 Test Item Value Reference Range Interpretation Comments UA Bili (test code = Negative *NA*(12/15/13 UA Bili) 5:33 AM) [facility] AND [id number] 10:33:54 Test Item Value Reference Range Interpretation Comments UA Ketones (test code Negative *NA*(12/15/13 = UA Ketones) 5:33 AM) [facility] AND [id number] 10:33:54 Test Item Value Reference Range Interpretation Comments UA Urobilinogen (test code = UA 0.2 0.1-1.0 Urobilinogen) [facility] AND [id number] 10:33:54 Test Item Value Reference Range Interpretation Comments UA Blood (test code = Negative (12/15/13 5:33 UA Blood) AM) [facility] AND [id number] 10:33:54 Test Item Value Reference Range Interpretation Comments UA WBC (test code = UA WBC) 0-2 /HPF [facility] AND [id number] 10:33:54 Test Item Value Reference Range Interpretation Comments UA Sq Epi (test code = UA Sq Epi) Few /LPF [facility] [id number] 10:33:54 Test Item Value Reference Range Interpretation Comments UA Leuk Est (test Negative (12/15/13 5:33 code = UA Leuk Est) AM) [facility] [id number] 10:33:54 Test Item Value Reference Range Interpretation Comments UA Glucose (test code Negative (12/15/13 5:33 = UA Glucose) AM) [facility] [id number] 10:33:28 Test Item Value Reference Range Interpretation Comments U Benzodia Scr (test Positive *ABN*(12/15/13 code = U Benzodia Scr) 5:33 AM) [facility] [id number] 10:33:28 Test Item Value Reference Range Interpretation Comments U Loren Scr (test code Negative *NA*(12/15/13 = U Loren Scr) 5:33 AM) [facility] [id number] 10:33:28 Test Item Value Reference Range Interpretation Comments U Cannab Scr (test Negative *NA*(12/15/13 code = U Cannab Scr) 5:33 AM) [facility] [id number] 10:33:28 Test Item Value Reference Range Interpretation Comments U Cocaine Scr (test Negative *NA*(12/15/13 code = U Cocaine Scr) 5:33 AM) [facility] [id number] 10:33:28 Test Item Value Reference Range Interpretation Comments U Amph Scr (test code Negative *NA*(12/15/13 = U Amph Scr) 5:33 AM) [facility] [id number] 10:33:28 Test Item Value Reference Range Interpretation Comments UDS Note (test code = See Note 6(12/15/13 5:33 UDS Note) AM) [facility] [id number] 10:33:28 Test Item Value Reference Range Interpretation Comments U Phencyc Scr (test Negative *NA*(12/15/13 code = U Phencyc Scr) 5:33 AM) [facility] [id number] 10:33:28 Test Item Value Reference Range Interpretation Comments U Opiate Scr (test Negative *NA*(12/15/13 code = U Opiate Scr) 5:33 AM) [facility] [id number] 10:33:28 Test Item Value Reference Range Interpretation Comments U Alcohol (test code = Negative (12/15/13 5:33 U Alcohol) AM) [facility] [id number] 09:39:00 Test Item Value Reference Range Interpretation Comments eGFR (test code = eGFR) 55 [facility] [id number] 09:39:00 Test Item Value Reference Range Interpretation Comments POC Creatinine (test code = POC 0.8 0.5-1.4 Creatinine) [facility] [id number] 09:24:00 Test Item Value Reference Range Interpretation Comments Troponin-I (test code no gt See_Comment [Auto mated message] The = Troponin-I) system which g enerated this result transmit jane reference range : <=0.40. The reference r mary was not used to interpr et this result as dada l/abnormal. [facility]2014-08-23 09:24:00 Test Item Value Reference Range Interpretation Comments eGFR (test code = eGFR) 48 [facility]2014-08-23 09:24:00 Test Item Value Reference Range Interpretation Comments Sodium Lvl (test code = Sodium Lvl) 132 135-145 [facility]2014-08-23 09:24:00 Test Item Value Reference Range Interpretation Comments CO2 (test code = CO2) 26 24-32 [facility]2014-08-23 09:24:00 Test Item Value Reference Range Interpretation Comments Creatinine Lvl (test code = Creatinine 0.9 0.5-1.4 Lvl) [facility]2014-08-23 09:24:00 Test Item Value Reference Range Interpretation Comments Potassium Lvl (test code = Potassium 3.4 3.5-5.1 Lvl) [facility]2014-08-23 09:24:00 Test Item Value Reference Range Interpretation Comments Chloride Lvl (test code = Chloride Lvl) 100 95-109 [facility]2014-08-23 09:24:00 Test Item Value Reference Range Interpretation Comments BUN (test code = BUN) 13 7-22 [facility]2014-08-23 09:24:00 Test Item Value Reference Range Interpretation Comments Glucose Lvl (test code = Glucose Lvl) 102 70-99 [facility]2014-08-23 09:24:00 Test Item Value Reference Range Interpretation Comments Calcium Lvl (test code = Calcium Lvl) 8.9 8.5-10.5 [facility]2014-08-23 09:24:00 Test Item Value Reference Range Interpretation Comments AGAP (test code = AGAP) 9.4 10.0-20.0 [id number] 09:24:00 Test Item Value Reference Range Interpretation Comments S Preg (test code = S Negative *NA*(12/15/13 Preg) 4:24 AM) [facility] [id number] 09:24:00 Test Item Value Reference Range Interpretation Comments Monocytes # (test code 1.0 See_Comment [Aut omated message] The = Monocytes #) system which generated this result tra nsmitted reference range : <=0.8. The reference r mary was not used to int erpret this result as normal/abnormal . [facility] [id number] 09:24:00 Test Item Value Reference Range Interpretation Comments Eosinophils # (test code 0.1 See_Comment [A utomated message] The = Eosinophils #) system whic h generated this result tra nsmitted reference range : <=0.5. The reference r mary was not used to int erpret this result as normal/abnormal . [facility] [id number] 09:24:00 Test Item Value Reference Range Interpretation Comments Basophils # (test code 0.0 See_Comment [Aut omated message] The = Basophils #) system which generated this result tra nsmitted reference range : <=0.2. The reference r mary was not used to int erpret this result as normal/abnormal . [facility] [id number] 09:24:00 Test Item Value Reference Range Interpretation Comments Large Plt (test code = Large Plt) Slight [facility] [id number] 09:24:00 Test Item Value Reference Range Interpretation Comments Lymphocytes (test code = Lymphocytes) 24.3 20.0-40.0 [facility] [id number] 09:24:00 Test Item Value Reference Range Interpretation Comments Monocytes (test code = Monocytes) 9.8 2.0-12.0 [facility] [id number] 09:24:00 Test Item Value Reference Range Interpretation Comments Eosinophils (test code = 1.2 See_Comment [A utomated message] The Eosinophils) system which ge nerated this result tra nsmitted reference range : <=4.0. The reference r mary was not used to int erpret this result as normal/abnormal . [facility] [id number] 09:24:00 Test Item Value Reference Range Interpretation Comments Basophils (test code = 0.1 See_Comment [Aut omated message] The Basophils) system which ge nerated this result tra nsmitted reference range : <=1.0. The reference r mary was not used to int erpret this result as normal/abnormal . [facility] [id number] 09:24:00 Test Item Value Reference Range Interpretation Comments Segs-Bands # (test code = Segs-Bands #) 6.5 1.5-8.1 [facility] [id number] 09:24:00 Test Item Value Reference Range Interpretation Comments Lymphocytes # (test code = Lymphocytes 2.5 1.0-5.5 #) [facility] [id number] 09:24:00 Test Item Value Reference Range Interpretation Comments RBC Morph (test code = Normal (12/15/13 4:24 RBC Morph) AM) [facility] [id number] 09:24:00 Test Item Value Reference Range Interpretation Comments Segs (test code = Segs) 64.6 45.0-75.0 [facility] [id number] 09:24:00 Test Item Value Reference Range Interpretation Comments Platelet (test code = Platelet) 140 133-450 [facility] [id number] 09:24:00 Test Item Value Reference Range Interpretation Comments RDW (test code = RDW) 12.0 11.5-14.5 [facility] [id number] 09:24:00 Test Item Value Reference Range Interpretation Comments MPV (test code = MPV) 10.9 7.4-10.4 [facility] [id number] 09:24:00 Test Item Value Reference Range Interpretation Comments Hct (test code = Hct) 34.1 36.0-48.0 [facility] [id number] 09:24:00 Test Item Value Reference Range Interpretation Comments MCV (test code = MCV) 83.0 80.0-98.0 [facility] [id number] 09:24:00 Test Item Value Reference Range Interpretation Comments RBC (test code = RBC) 4.11 4.20-5.40 [facility] [id number] 09:24:00 Test Item Value Reference Range Interpretation Comments Hgb (test code = Hgb) 11.9 12.0-16.0 [facility] CenterOheqmhhDWSIDQLHQL2008-06-71 09:24:00 Test Item Value Reference Range Interpretation Comments MCH (test code = MCH) 29.0 pg 27.0-31.0 [facility] [id number] 09:24:00 Test Item Value Reference Range Interpretation Comments MCHC (test code = MCHC) 34.9 32.0-36.0 [facility] [id number] 09:24:00 Test Item Value Reference Range Interpretation Comments WBC (test code = WBC) 10.1 3.7-10.4 [facility] [id number] 09:24:00 Test Item Value Reference Range Interpretation Comments Acetaminoph Lvl (test code (12/15/13 4:24 AM) 10-20 = Acetaminoph Lvl) [facility] [id number] 09:19:00 Test Item Value Reference Range Interpretation Comments UDS Note (test code = See Note 7(12/15/13 4:19 UDS Note) AM) [facility] [id number] 09:19:00 Test Item Value Reference Range Interpretation Comments U Phencyc Scr (test Negative *NA*(12/15/13 code = U Phencyc Scr) 4:19 AM) [facility] [id number] 09:19:00 Test Item Value Reference Range Interpretation Comments U Cannab Scr (test Negative *NA*(12/15/13 code = U Cannab Scr) 4:19 AM) [facility] [id number] 09:19:00 Test Item Value Reference Range Interpretation Comments U Opiate Scr (test Negative *NA*(12/15/13 code = U Opiate Scr) 4:19 AM) [facility] [id number] 09:19:00 Test Item Value Reference Range Interpretation Comments U Cocaine Scr (test Negative *NA*(12/15/13 code = U Cocaine Scr) 4:19 AM) [facility] [id number] 09:19:00 Test Item Value Reference Range Interpretation Comments U Benzodia Scr (test Positive *ABN*(12/15/13 code = U Benzodia Scr) 4:19 AM) [facility] [id number] 09:19:00 Test Item Value Reference Range Interpretation Comments U Amph Scr (test code Negative *NA*(12/15/13 = U Amph Scr) 4:19 AM) [facility] [id number] 09:19:00 Test Item Value Reference Range Interpretation Comments U Loren Scr (test code Negative *NA*(12/15/13 = U Loren Scr) 4:19 AM) [facility] Notes Date/Time Note Provider Source 2013-12-15 EXAM: MRI BRAIN WITHOUT CONTRAST [facility] 09:50:00-00:00 Center DATE: 12/15/2013 INDICATION: Right-sided weakness and slurred spe ech TECHNIQUE: Multiplanar, multisequence MRI of the brain without contrast. COMPARISON: CT brain from 12/15/2013 FINDINGS: No restricted diff usion. Scattered moderate chronic microangiopathic changes. No hemorrhage, hydrocephalus, or extra-axial collection. Larger intracranial vascular flow voids are preserved. Fo sneha opacification of a right posterior ethmoid a ir cell. IMPRESSION: No acute abnormality. Chronic microangiopathic changes. 2013-12-15 EXAM: CT OF THE BRAIN WITHOUT CONTRAST [facility] 04:40:00-00:00 EXAM: HEAD AND NECK CTA Center EXAM: CT PERFUSION DATE: Dec 15, 2013 05:04:00 AM CLINICAL HISTORY: Altered level of consciousness . TECHNIQUE: -Routine axial images of the brain were obtained without contrast. -Rapid acquisition spiral im ages were obtained between the aortic arch and the cranial vertex during intravenous infusion of iodinated contrast for the purposes of CT angiography. Reformatted images in the coronal, sagittal and ax ial plane were included for interpretation. 3-D CT angiographic images are created using maximum intensity projection technique. The source images are also presented for interpretation.[ -Cerebral perfusion analysis using computed tomography with contrast administration, including post-processing of parametric maps with determination of cerebral blood flow, cerebral blood volume, and mean transit time. FINDINGS: CT OF THE BRAIN WITHOUT CONTRAST: No acute intracranial hemorr jayro or mass effect. The reese-white matter interfaces are preserved. Hypodensities in the supratentorial white matter may represent chronic small vessel scheming changes. Mil d cerebral volume loss with compensatory enlargement of the ventricles and sulci. Basal cisterns are patent Opacification of the right posterior ethmoid air cell. The mastoids are clear CTA OF THE HEAD AND NECK: The origin of the brachiocep halic, left carotid and left subclavian arteries are unremarkable. Minimal atherosclerotic calc ification in the right carotid bifurcation. The right common carotid and cervical internal carotid or is are normal in caliber without significant stenosis. Mixed calcified a nd noncalcified plaque at th e left carotid bulb results in stenosis of the proximal left ICA by 40 to 50%. The branches of the anterior and middle cerebral arteries are unremarkable without hemodynamically significant stenosis or proximal branch occlusion. The left vertebral artery sl ightly dominant. No hemodynamically significant stenosis of the bilateral vertebral arteries. The basilar artery, cerebellar branches and posterior cerebral arteries are normal. The deep cerebral veins and major venous sinuses are patent. 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 Beam hardening artifact versus nodule in the lower pole of the left lobe of the thyroid. Degenerative changes are seen in the cervical sp ine. CT PERFUSION: There is no regional abnorma lity in the cerebral blood flow or cerebral blood volume in the selected area of the brain. IMPRESSION: 1. No acute intracranial abnormality. 2. Unremarkable CTA of the brain without flow li miting stenosis or occlusion. 3. CTA Neck: Atherosclerotic plaque at the left carotid bulb results in stenosis of the proximal left ICA by 40 to 50%. 4. CT perfusion: Normal. 5. Hypodensity in the lower pole of the left lobe of the thyroid may represent a nodule or artifact. Thyroid ultrasound may be obtained for further evaluation. The right lobe of the thyroid is absent. 2013-12-15 EXAM: CT OF THE BRAIN WITHOUT CONTRAST [facility] 04:40:00-00:00 EXAM: HEAD AND NECK CTA Center EXAM: CT PERFUSION DATE: Dec 15, 2013 05:04:00 AM CLINICAL HISTORY: Altered level of consciousness . TECHNIQUE: -Routine axial images of the brain were obtained without contrast. -Rapid acquisition spiral im ages were obtained between the aortic arch and the cranial vertex during intravenous infusion of iodinated contrast for the purposes of CT angiography. Reformatted images in the coronal, sagittal and ax ial plane were included for interpretation. 3-D CT angiographic images are created using maximum intensity projection technique. The source images are also presented for interpretation.[ -Cerebral perfusion analysis using computed tomography with contrast administration, including post-processing of parametric maps with determination of cerebral blood flow, cerebral blood volume, and mean transit time. FINDINGS: CT OF THE BRAIN WITHOUT CONTRAST: No acute intracranial hemorr jayro or mass effect. The reese-white matter interfaces are preserved. Hypodensities in the supratentorial white matter may represent chronic small vessel scheming changes. Mil d cerebral volume loss with compensatory enlargement of the ventricles and sulci. Basal cisterns are patent Opacification of the right posterior ethmoid air cell. The mastoids are clear CTA OF THE HEAD AND NECK: The origin of the brachiocep halic, left carotid and left subclavian arteries are unremarkable. Minimal atherosclerotic calc ification in the right carotid bifurcation. The right common carotid and cervical internal carotid or is are normal in caliber without significant stenosis. Mixed calcified a nd noncalcified plaque at th e left carotid bulb results in stenosis of the proximal left ICA by 40 to 50%. The branches of the anterior and middle cerebral arteries are unremarkable without hemodynamically significant stenosis or proximal branch occlusion. The left vertebral artery sl ightly dominant. No hemodynamically significant stenosis of the bilateral vertebral arteries. The basilar artery, cerebellar branches and posterior cerebral arteries are normal. The deep cerebral veins and major venous sinuses are patent. 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 Beam hardening artifact versus nodule in the lower pole of the left lobe of the thyroid. Degenerative changes are seen in the cervical sp ine. CT PERFUSION: There is no regional abnorma lity in the cerebral blood flow or cerebral blood volume in the selected area of the brain.
[2022-11-29 13:22] LABS: Absolute Lymphocytes (CBC) 0.9 K/uL (0.7-4.9); Hematocrit 30.6 % (36.0-45.0); Lymphocytes % 4.2 % (15.3-44.8); MPV 9.1 fL (7.6-11.3); Platelets 199 thou/uL (152-406); RBC Red Blood Cell Count 3.65 M/uL (3.86-4.86)
[2022-11-29 13:24] LABS: Specific Gravity 1.011 (1.005-1.030); Urine Bacteria None Seen /HPF (<20); Urine Bilirubin NEGATIVE (Negative); Urine Blood Trace (Negative); Urine Clarity Clear (Clear); Urine Color Light-Yellow (Yellow); Urine Glucose NEGATIVE (Negative); Urine Mucus Slight /HPF (None Seen); Urine Protein 1+ (Negative); Urine RBC <5 /HPF (None Seen); Urine Urobilinogen Normal (Normal); Urine pH 6.5 (5.0-7.0)
[2022-11-29] MEDS ORDERED: ONDANSETRON 4 MG/2 ML VIAL ONE (13:30)
[2022-11-29] MEDS ORDERED: NA CHLORIDE 0.9% 1,000 ML ONE (13:30)
[2022-11-29] MEDS ORDERED: MORPHINE 4 MG/ML SYR ONE (13:30)
[2022-11-29 13:42] LABS: Albumin 2.7 g/dL (3.4-5.0); Bilirubin Total 0.5 mg/dL (0.2-1.0); Potassium 4.3 mEq/L (3.5-5.1)
--- NOTE | 2022-11-29 14:10 | RAD REPORT ---
EXAM DESCRIPTION: CT - Abdomen Pelvis W Contrast - 11/29/2022 1:54 pm CLINICAL HISTORY: Abdominal pain COMPARISON: none. TECHNIQUE: Computed axial tomography of the abdomen pelvis was obtained. 100 cc Isovue-300 was admin istered intravenously. Oral contrast was not requested which limits evaluation of bowel and appendix All CT scans are performed using dose optimization technique as appropriate and may include automated exposure control or mA/KV adjustment according to patient size. FINDINGS: The liver, spleen, pancreas, adrenal and kidneys appear unremarkable. Small hiatal hernia Diverticula stem from colon. Small curvilinear air extends from the proximal aspect of sigmoid colon anteriorly. An abscess lies adjacent to this abutting the left anterior abdominal wall within the pel vis. The fluid component measures 4.5 x 1.5 centimeters. The air component measures 4.5 centimeters. IMPRESSION: Perforated sigmoid diverticulum with abscess as described above
[2022-11-29 14:12] LABS: Blood Morphology Comment NOT SEEN (NOT SEEN); Platelet Estimate ADEQ
--- NOTE | 2022-11-29 14:44 | ER ---
Nurse's Notes [facility] Name: Ирина Durham Age: 77 yrs Sex: Female : 1945 Arrival Date: 11/29/2022 Time: 12:26 Bed 14 Private MD: Diagnosis: Perforated sigmoid diverticulum with abscess Presentation: 11/29 12:29 Chief complaint: Patient states: LLQ and suprapubic pain since yesterday. Had n/v last eh3 week. Also c/o weakness and right shoulder. Shoulder is bruised, pt does not recall falling and does not know how it became bruised. Coronavirus screen: Vaccine status: Patient reports receiving the 1st dose of the Covid vaccine. Ebola Screen: No symptoms or risks identified at this time. Initial Sepsis Screen: Does the patient meet any 2 criteria? No. Patient's initial sepsis screen is negative. Does the patient have a suspected source of infection? No. Patient's initial sepsis screen is negative. Risk Assessment: Do you want to hurt yourself or someone else? Patient reports no desire to harm self or others. Onset of symptoms was November 29, 2022. 12:29 Method Of Arrival: Wheelchair 3 12:29 Acuity: RADU 3 eh3 Triage Assessment: 12:36 General: Appears in no apparent distress. uncomfortable, Behavior is calm, cooperative, eh3 appropriate for age. Pain: Complains of pain in suprapubic area and left lower quadrant Pain radiates to lumbar area. Neuro: Level of Consciousness is awake, alert, obeys commands, Oriented to person, place, time, situation. Cardiovascular: Capillary refill < 3 seconds Patient's skin is warm and dry. Respiratory: Airway is patent Respiratory effort is even, unlabored, Respiratory pattern is regular, symmetrical. GI: Abdomen is round non-distended. Historical: - Allergies: 12:36 No Known Allergies; eh3 - Home Meds: 12:36 Metoprolol Tartrate Oral [Active]; valsartan-hydrochlorothiazide oral [Active]; eh3 - PMHx: 12:36 Hypertensive disorder; Gastroesophageal reflux disease; cardiac murmur; Anxiety; eh3 Depressive disorder; Palpitations; - Immunization history:: Adult Immunizations not up to date. - Social history:: Smoking status: Patient denies any tobacco usage or history of. Screenin:30 [facility] ED Fall Risk Assessment (Adult) History of falling in the last 3 months, bp including since admission No falls in past 3 months (0 pts). Abuse screen: Denies threats or abuse. Denies injuries from another. Nutritional screening: No deficits noted. Tuberculosis screening: No symptoms or risk factors identified. Assessment: 13:10 General: SEE TRIAGE NOTE. bp 14:00 Reassessment: Patient appears in no apparent distress at this time. Patient and/or 3 family updated on plan of care and expected duration. Pain level reassessed. Patient is alert, oriented x 3, equal unlabored respirations, skin warm/dry/pink. 15:00 Reassessment: Patient appears in no apparent distress at this time. Patient and/or 3 family updated on plan of care and expected duration. Pain level reassessed. Patient is alert, oriented x 3, equal unlabored respirations, skin warm/dry/pink. Vital Signs: 12:29 BP 128 / 73; Pulse 109; Resp 18; Temp 98; Pulse Ox 97% on R/A; Weight 76.66 kg; Height eh3 5 ft. 3 in. ; Pain 8/10; 15:00 BP 119 / 99; Pulse 108; Resp 18; Pulse Ox 100% on R/A; eh3 16:00 BP 139 / 81; Pulse 100; Resp 18; Pulse Ox 100% on R/A; eh3 12:29 Body Mass Index 29.94 (76.66 kg, 160.02 cm) 3 12:29 Pain Scale: Adult [facility] ED Course: 12:27 Patient arrived in ED. rg4 12:32 Carmen Alfaro FNP is PHCP. jh7 12:32 Eleazar Bernal DO is Attending Physician. jh7 12:36 Triage completed. eh3 12:36 Arm band placed on. eh3 12:45 Kurtis Hylton, RN is Primary Nurse. bp 13:10 Inserted saline lock: 20 gauge in right forearm, using aseptic technique. Blood bp collected. 13:30 Patient has correct armband on for positive identification. Bed in low position. Call bp light in reach. Side rails up X2. Adult w/ patient. 13:56 CT Abd/Pelvis - IV Contrast Only In Process Unspecified. EDMS 14:28 XRAY Shoulder RIGHT 2 view In Process Unspecified. EDMS 14:56 initiated transfer to [facility]. bd Administered Medications: 13:10 Drug: NS 0.9% IV 1000 ml Route: IV; Rate: 1 bolus; Site: right forearm; bp 13:10 Drug: Ondansetron IVP 4 mg Route: IVP; Site: right forearm; bp 13:10 Drug: morphine IVP or IV 4 mg Route: IVP; Infused Over: 4 mins; Site: right forearm; bp 15:30 Drug: metroNIDAZOLE IVPB 500 mg Volume: 100 ml; Route: IVPB; Rate: 200 ml/hr; Infused eh3 Over: 30 mins; Site: right antecubital; 16:00 Follow up: Response: No adverse reaction; IV Status: Completed infusion; IV Intake: eh3 100ml 16:00 Drug: Ciprofloxacin IVPB 400 mg Volume: 200 ml; Route: IVPB; Infused Over: 60 mins; eh3 Site: right antecubital; Medication: 16:27 VIS not applicable for this client. eh3 Intake: 16:00 IV: 100ml; Total: 100ml. eh3 Outcome: 14:44 ER care complete, transfer ordered by MD. duarte 16:33 Patient left the ED. 3 Signatures: Dispatcher [employer] EDMS Leila Webb Rubi rg4 Kurtis Hylton, RN RN Melissa Ibarra RN RN 3 Carmen Alfaro FNP [employer] 7 Corrections: (The following items were deleted from the chart) 16:27 15:00 VIS not applicable for this client. eh3 3
--- NOTE | 2022-11-29 14:44 | EDPHYS ---
Physician Documentation [facility] Name: Ирина Diazzysem Age: 77 yrs Sex: Female : 1945 Arrival Date: 11/29/2022 Time: 12:26 Bed 14 Private MD: ED Physician Eleazar Bernal HPI: 11/29 12:40 This 77 yrs old Female presents to ER via Wheelchair with complaints of Abdominal Pain, jh7 Shoulder Pain. 12:40 The patient presents with abdominal pain in the left lower quadrant. Onset: The jh7 symptoms/episode began/occurred yesterday. The symptoms radiate to suprapubic area. Associated signs and symptoms: Pertinent positives: nausea and vomiting, fever, Pertinent negatives: chest pain, diarrhea, dysuria, shortness of breath, vomiting. 77-year-old female presents to the ER complaining of left lower quadrant pain, nausea and vomiting, low-grade fever, and right shoulder pain. The patient states that she is unsure how she developed a large bruise on her right shoulder and denies any known trauma.. Historical: - Allergies: 12:36 No Known Allergies; eh3 - Home Meds: 12:36 Metoprolol Tartrate Oral [Active]; valsartan-hydrochlorothiazide oral [Active]; eh3 - PMHx: 12:36 Hypertensive disorder; Gastroesophageal reflux disease; cardiac murmur; Anxiety; eh3 Depressive disorder; Palpitations; - Immunization history:: Adult Immunizations not up to date. - Social history:: Smoking status: Patient denies any tobacco usage or history of. ROS: 12:40 ENT: Negative for injury, pain, and discharge, Neck: Negative for injury, pain, and jh7 swelling, Cardiovascular: Negative for chest pain, palpitations, and edema, Respiratory: Negative for shortness of breath, cough, wheezing, and pleuritic chest pain, Back: Negative for injury and pain, MS/Extremity: Negative for injury and deformity, Skin: Negative for injury, rash, and discoloration, Neuro: Negative for headache, weakness, numbness, tingling, and seizure. 12:40 Constitutional: Positive for fever. 12:40 Abdomen/GI: Positive for abdominal pain, nausea and vomiting, Negative for diarrhea, rectal bleeding. 12:40 MS/extremity: Positive for contusion, ecchymosis, pain, of the right shoulder. 12:40 All other systems are negative. Exam: 12:40 Back: No spinal tenderness. No costovertebral tenderness. Full range of motion. jh7 Skin: Warm, dry with normal turgor. Normal color with no rashes, no lesions, and no evidence of cellulitis. Neuro: Awake and alert, GCS 15, oriented to person, place, time, and situation. Motor strength 5/5 in all extremities. Sensory grossly intact. Normal gait. 12:40 Abdomen/GI: Inspection: abdomen appears normal, Bowel sounds: normal, Palpation: soft, moderate abdominal tenderness, in the suprapubic area and left lower quadrant. 12:40 Musculoskeletal/extremity: Extremities: noted in the right shoulder: ecchymosis, ROM: limited active range of motion due to pain, in the R shoulder, Circulation is intact in all extremities. Sensation intact. 12:40 Cardiovascular: Rate: normal, Rhythm: regular, Pulses: Pulses are 3+ in right radial jh7 artery and left radial artery. Heart sounds: murmur, grade 5 over 6. 12:40 Eyes: Pupils equal round and reactive to light, extra-ocular motions intact. Lids and jh7 lashes normal. Conjunctiva and sclera are non-icteric and not injected. Cornea within normal limits. Periorbital areas with no swelling, redness, or edema. Neck: Trachea midline, no thyromegaly or masses palpated, and no cervical lymphadenopathy. Supple, full range of motion without nuchal rigidity, or vertebral point tenderness. No Meningismus. Respiratory: Lungs have equal breath sounds bilaterally, clear to auscultation and percussion. No rales, rhonchi or wheezes noted. No increased work of breathing, no retractions or nasal flaring. Vital Signs: 12:29 BP 128 / 73; Pulse 109; Resp 18; Temp 98; Pulse Ox 97% on R/A; Weight 76.66 kg; Height eh3 5 ft. 3 in. ; Pain 8/10; 15:00 BP 119 / 99; Pulse 108; Resp 18; Pulse Ox 100% on R/A; eh3 16:00 BP 139 / 81; Pulse 100; Resp 18; Pulse Ox 100% on R/A; eh3 12:29 Body Mass Index 29.94 (76.66 kg, 160.02 cm) eh3 12:29 Pain Scale: Adult eh3 MDM: 12:32 Patient medically screened. [facility] 15:50 Differential diagnosis: bowel obstruction, diverticulitis, gastritis, Peritonitis. Data [facility] reviewed: vital signs, nurses notes, lab test result(s), radiologic studies, CT scan, plain films. Consideration of Admission/Observation Patient was transferred for higher level of care. Management of patient was discussed with the following: Rounding Machine Operator: Dr. Arellano, General surgery. Dr. Arellano came to review CT scan, lab work, and evaluate patient in the ED. Recommended transfer for colorectal surgery.. I considered the following discharge prescriptions or medication management in the emergency department Medications were administered in the Emergency Department. See MAR. Historians other than the Patient: Spouse/Significant Other: . Care significantly affected by the following chronic conditions: Hypertension. Counseling: I had a detailed discussion with the patient and/or guardian regarding: the historical points, exam findings, and any diagnostic results supporting the discharge/admit diagnosis, the need to transfer to another facility, for higher level of care, [facility] does not immediately have the required specialist. Response to treatment: the patient's symptoms have mildly improved after treatment. Awaiting: transfer to another facility. 11/29 12:55 Order name: CBC with Diff; Complete Time: 14:38 [facility] 11/29 12:55 Order name: CMP; Complete Time: 13:50 [facility] 11/29 12:55 Order name: Lipase; Complete Time: 13:50 [facility] 11/29 12:55 Order name: Urinalysis w/ reflexes; Complete Time: 13:25 [facility] 11/29 14:07 Order name: Lactate w/ 2H reflex if indic.; Complete Time: 15:04 [facility] 11/29 14:12 Order name: Manual Differential; Complete Time: 14:38 [facility] 11/29 14:42 Order name: Blood Culture Adult (2) [facility] 11/29 12:55 Order name: CT Abd/Pelvis - IV Contrast Only; Complete Time: 14:38 [facility] 11/29 12:55 Order name: XRAY Shoulder RIGHT 2 view; Complete Time: 14:47 [facility] 11/29 12:55 Order name: IV Saline Lock; Complete Time: 13:29 [facility] 11/29 12:55 Order name: Labs collected and sent; Complete Time: 13:29 jh7 Administered Medications: 13:10 Drug: NS 0.9% IV 1000 ml Route: IV; Rate: 1 bolus; Site: right forearm; bp 13:10 Drug: Ondansetron IVP 4 mg Route: IVP; Site: right forearm; bp 13:10 Drug: morphine IVP or IV 4 mg Route: IVP; Infused Over: 4 mins; Site: right forearm; bp 15:30 Drug: metroNIDAZOLE IVPB 500 mg Volume: 100 ml; Route: IVPB; Rate: 200 ml/hr; Infused eh3 Over: 30 mins; Site: right antecubital; 16:00 Follow up: Response: No adverse reaction; IV Status: Completed infusion; IV Intake: eh3 100ml 16:00 Drug: Ciprofloxacin IVPB 400 mg Volume: 200 ml; Route: IVPB; Infused Over: 60 mins; eh3 Site: right antecubital; Disposition: 14:46 Co-signature as Attending Physician, Eleazar WISEMAN was immediately available on-site ms3 in the Emergency Department for consultation in the care of the patient. Disposition Summary: 11/29/22 14:44 Transfer Ordered Transfer Location: [place] [id number] Reason: Higher level of care [facility] Condition: Fair jh7 Problem: new 7 Symptoms: have worsened 7 Accepting Physician: Dr. Flores(11/29/22 16:33) [facility] Diagnosis - Perforated sigmoid diverticulum with abscess [facility] Forms: - Medication Reconciliation Form jh7 - SBAR form 7 Signatures: Dispatcher [employer] EDKurtis Feliz RN RN bp Sims, Marcus, DO DO sd3 Melissa Ochoa RN RN [facility] Carmen Alfaro FNP FNP [facility] Corrections: (The following items were deleted from the chart) 14:37 12:40 Constitutional: This is a well developed, well nourished patient who is awake, jh7 alert, and in no acute distress. Eyes: Pupils equal round and reactive to light, extra-ocular motions intact. Lids and lashes normal. Conjunctiva and sclera are non-icteric and not injected. Cornea within normal limits. Periorbital areas with no swelling, redness, or edema. Cardiovascular: Regular rate and rhythm with a normal S1 and S2. No gallops, murmurs, or rubs. Normal PMI, no JVD. No pulse deficits. Respiratory: Lungs have equal breath sounds bilaterally, clear to auscultation and percussion. No rales, rhonchi or wheezes noted. No increased work of breathing, no retractions or nasal flaring. [facility] 15:53 14:44 colorectal surgery [facility]7 16:33 15:53 Dr. Flores [facility] eh3
--- NOTE | 2022-11-29 14:45 | RAD REPORT ---
EXAM DESCRIPTION: RAD - Shoulder Right 2 View - 11/29/2022 2:26 pm CLINICAL HISTORY: Right shoulder pain FINDINGS: No fracture or dislocation is seen. Humeral head is high riding which may indicate a chronic rotator cuff tear Osteoporosis. Mild osteoarthritis AC and glenohumeral joints
[2022-11-29] MEDS ORDERED: CIPROFLOXACIN 400mg IV 400 MG/200 ML BAG IV ONE (15:11)
[2022-11-29] MEDS ORDERED: METRONIDAZOLE 500mg IVPB 500 MG/100 ML BAG IV ONE (15:11)
[2022-11-29 17:01] VITALS: TEMP 98
[2022-11-29 17:07] VITALS: O2SAT 100
[2022-11-29 17:08] VITALS: BP 139/81
--- NOTE | 2022-11-29 20:21 | CON ---
Date of Consultation: 11/29/2022 History Of Present Illness: Ms. Gifford is a 77-year-old patient, who comes to us complaining of left lower quadrant abdominal pain. She has that for several days. She does not like to come to the hosp ital, so she is trying to treat it herself, but today it was getting worse, so she has to come to the ER and found to have diverticulitis with abscess. She denies any trauma, any dysuria, hematuria, he matochezia, melena. She denies any recent traveling out of the country. Denies any family member si ck at home. Review of Systems: Positive for nausea, vomiting, low-grade fever, and left lower quadrant abdominal pain. Allergies: NONE. Medications: Metoprolol. Past Medical History: Hypertension, GE reflux, cardiac murmur, anxiety, depression, and palpitation. Past Surgical History: Surgeries include a colonoscopy about 7 years ago. She does not recall any m asses that she was told. Physical Examination: General: The patient is awake, alert. HEENT: Pupils are equal, reactive. Anicteric. Neck: Supple. Chest: Clear. Heart: S1, S2. Abdomen: Left lower quadrant tenderness with guarding. No rebound. Pelvic: Deferred. Breasts: Deferred. Rectal: Deferred. Extremities: Good capillary refill. Laboratory Data: Blood work shows WBC count of 20.8, hemoglobin of 9.7, and platelets of 199. Sodiu m is 130. UA; nitrate negative. CAT scan of the abdomen and pelvis interpreted by Dr. Medrano as pe rforated sigmoid diverticulum with abscess. Assessment: This is a 77-year-old patient with perforated diverticulitis, small 4 mm area extending from the proximal aspect of the sigmoid colon anteriorly and abscess lies adjacent to this area on th e left anterior abdominal wall. The abscess is about 4.5 cm. Small hiatal hernia present. This is a 77-year-old patient with a perforated sigmoid diverticulum with abscess. She has no perito nitis at this moment. She has some guarding, no rebound, and she feels comfortable, but the CAT scan is showing more than what we suspect with that kind of clinical still. White count is elevated and I believe this patient should be seen by colorectal surgeon in an institution where they have them. This will help her not just to treat, but also to understand her conditions. A colonoscopy was done long time ago. I explained to her that even though maybe the diverticulum, we also have to rule out neoplasia. SP/PERICO Voice ID: [id number] Report ID: [id number]
== END 2022-11-29 16:33 | disposition short-term general hospital (02) ==
LOC: ER 12:26
DX: K57.20 Diverticulitis of large intestine with perforation and abscess without bleeding (principal); S40.011A Contusion of right shoulder, initial encounter; I10 Essential (primary) hypertension; K21.9 Gastro-esophageal reflux disease without esophagitis
CPT/HCPCS: 87040 ×2; 85025; 81001; 36415; 83605; 83690; 80053; 74177; 73030; 99284; Q9967; J2405; J0744; J7030

== ENCOUNTER 2023-02-22 07:30 | Day surgery (SDC) | payer OTHER ==
--- NOTE | 2023-02-16 16:12 | RAD REPORT ---
EXAM DESCRIPTION: RAD - Chest Pa And Lat (2 Views) - 02/16/2023 3:58 pm CLINICAL HISTORY: PRE PROCEDURE Chest pain. COMPARISON: No comparisons FINDINGS: The lungs are mildly emphysematous but clear. The heart is moderately enlarged in size. No displaced fractures.
[2023-02-16 16:33] LABS: Absolute Lymphocytes (CBC) 2.2 K/uL (0.7-4.9); Hematocrit 33.4 % (36.0-45.0); Lymphocytes % 21.6 % (15.3-44.8); MCV 81.9 fL (80-100); MPV 9.4 fL (7.6-11.3); Platelets 218 thou/uL (152-406); RBC Red Blood Cell Count 4.08 M/uL (3.86-4.86)
[2023-02-16 16:36] LABS: Protime INR 1.01
--- NOTE | 2023-02-17 07:59 | EKG ---
Test Date: 2023-02-16 Test Time: 15:38:19 Attendance Secretary: MEASUREMENT RESULTS: Intervals: Rate: 75 VT: 232 QRSD: 94 QT: 376 QTc: 419 [place]: P: 57 VT: 232 QRS: 40 T: 58 INTERPRETIVE STATEMENTS: Sinus rhythm with 1st degree AV block Possible Left atrial enlargement Nonspecific T wave abnormality Abnormal ECG No previous ECG available for comparison Electronically Signed On 02-17-23 07:57:10 CDT by Sarbjit Campos
[2023-02-22] MEDS ORDERED: NA CHLORIDE 0.9% 500 ML ONE (08:25)
[2023-02-22] MEDS ORDERED: HEPA 1000U/500MLS 2,000 UNIT/1,000 ML BAG IV ONE (09:26)
[2023-02-22] MEDS ORDERED: LIDOCAINE 1% 20 ML MDV ONE (09:26)
[2023-02-22] MEDS ORDERED: FENTANYL CITR 100 MCG/2 ML ONE (09:26)
[2023-02-22] MEDS ORDERED: HEPARIN 10,000 UNIT/10 ML VIAL IV ONE (09:27)
[2023-02-22] MEDS ORDERED: MIDAZOLAM HCL 2 MG/2 ML INJ ONE (09:27)
[2023-02-22] MEDS ORDERED: ASPIRIN 325 MG TAB ONE (09:27)
[2023-02-22] MEDS ORDERED: VERAPAMIL HCL 10 MG/4 ML VIAL IV ONE (09:27)
[2023-02-22] MEDS ORDERED: HEPARIN 5000 UNIT/ML 1 ML VIAL ONE (09:27)
[2023-02-22] MEDS ORDERED: CLOPIDOGREL 75 MG TABLET ONE (09:27)
[2023-02-22] MEDS ORDERED: ATROPINE SULF 1 MG/10 ML SYR IV ONE (09:28)
[2023-02-22] MEDS ORDERED: TICAGRELOR 90 MG TABLET PO ONE (09:28)
[2023-02-22 09:43] VITALS: TEMP 98; O2SAT 100
[2023-02-22 14:56] VITALS: BP 173/56
--- NOTE | 2023-02-24 16:32 | OP ---
Date of Procedure: 02/22/2023 Surgeon: HOANG CAMPBELL Procedure Performed: 1.Selective coronary angiogram. 2.Left heart catheterization. 3.Right heart catheterization. Indication: 1.Unstable angina. 2.Abnormal stress test. 3.Aortic valve stenosis. Access: 1.Right radial artery 6-Grenadian closed with TR band. 2.Right IJ 7-Grenadian closed with manual pressure. Complications: None. Bleeding: Less than 20 mL. Description Of Procedure: After risks, benefits, and alternatives were explained, patient agreed to procedure and signed informal consent. Patient was brought into cardiac catheterization laboratory, prepped and draped in the usual sterile fashion. Then, I accessed right radial artery using Invariumi c micropuncture kit, placed 6-Grenadian slender sheath and access right IJ using micropuncture kit ultra sound guidance, and placed a 7-Grenadian Manquin sheath and took a balloon tip 7-Grenadian Crowell catheter. Through the IJ, I accessed into the right atrium, right ventricle, PA and watch obtain waveform and pressures, and then obtained, dilution, cardiac output and removed the Crowell catheter. Then, I took 5 -Grenadian [place] 4 catheter and aortic root, engaged left main, took standard views and then the RCA, to ok standard views and the catheter was pushed over the wire into the LV, measured LVEDP. Pullback re corded significant gradient across the aortic valve and then removed the catheter and sheath. Then p laced TR band with good hemostasis. IJ sheath was removed and manual pressure was applied with good hemostasis. Findings: 1.Left main is normal. 2.LAD is normal. Normal diagonal branches. 3.Left circumflex is normal with normal OM branches. 4.RCA is normal. 5.Elevated LVEDP at 60 mmHg. 6.Right heart catheterization numbers. RA pressure is 5. RV pressure is 35/1 with mean of 6. PA p ressure is 34/5, mean of 21, and pulmonary wedge pressure was 22 mmHg and cardiac output was 5.1 L/mi nute. Mean gradient across the aortic valve was 36 mmHg. An aortic valve area was 0.71 cm2. Conclusion: 1.Normal coronary arteries. 2.Severe aortic valve stenosis with a mean gradient of 36 and 36 mmHg with valve area of 0.71. 3.Mildly elevated LVEDP. Recommendation: TAVR. SR/MODL Voice ID: [id number] Report ID: [id number]
== END 2023-02-22 12:50 | disposition home or self-care (01) ==
LOC: CCL 07:30 → MERGE 09:30 → CCL 12:50
PROVIDERS: ATTEND Internal Medicine
DX: I35.0 Nonrheumatic aortic (valve) stenosis (principal); I20.0 Unstable angina; I65.23 Occlusion and stenosis of bilateral carotid arteries; I10 Essential (primary) hypertension; Z79.899 Other long term (current) drug therapy
CPT/HCPCS: 93005; 85025; 80048; 36415; 85610; 85730; 71046; 93460; 76937; C1893; Q9966; C1769; J1644; J2001; J2250; J3010; J7040; J0461

== ENCOUNTER 2024-02-18 17:39 | Inpatient (IN) | payer OTHER ==
[2024-02-18] MEDS ORDERED: SODIUM CHLORIDE 0.9% 10ML INJ IV PRN (20:11)
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
[2024-02-18] MEDS ORDERED: NA CHLORIDE 0.9% 1,000 ML IV SCH (21:00)
[2024-02-18] MEDS: BENZONATATE 100 MG CAP PO PRN (21:51)
[2024-02-18] MEDS: GUAIFENESIN 600 MG SA TAB PO SCH (21:51)
[2024-02-18 22:34] VITALS: BMI 27.1
[2024-02-18] MEDS: HYDRALAZINE HCL 20 MG/ML VIAL IV PRN (23:48)
[2024-02-18 23:59] LABS: Absolute Eosinophils 0.1 K/uL (0-0.5); Absolute Lymphocytes (CBC) 1.6 K/uL (0.7-4.9); Absolute Monocytes 0.6 K/uL (0.1-1.3); Absolute Neutrophil 2.4 K/uL (1.8-8.0); Basophils % 0.4 % (0-1.3); Eosinophils % 1.2 % (0-4.4); Hematocrit 30.6 % (36.0-45.0); Lymphocytes % 34.1 % (15.3-44.8); MCH 26.3 pg (27.0-35.0); MCHC 32.6 g/dL (32.0-36.0); MCV 80.5 fL (80-100); MPV 9.5 fL (7.6-11.3); Monocytes % 12.3 % (3.3-12.3); Nucleated Red Blood Cells % 0.1 % (0-0); Platelets 120 thou/uL (152-406); RBC Red Blood Cell Count 3.79 M/uL (3.86-4.86); Red Cell Distribution Width 14.3 % (12.1-15.2)
[2024-02-19 00:08] LABS: Albumin 3.2 g/dL (3.4-5.0); Anion Gap 7.5 mEq/L (5.0-15.0); Bilirubin Total 0.3 mg/dL (0.2-1.0); Globulin 3.2 g/dL (2.3-3.5); Magnesium 1.7 mg/dL (1.6-2.4); Phosphorus 3.4 mg/dL (2.5-4.9); Potassium 3.5 mEq/L (3.5-5.1); Protein, Total 6.4 g/dL (6.4-8.2)
[2024-02-19] MEDS: OSELTAMIVIR 75 MG CAP PO ONE (01:15)
[2024-02-19] MEDS: ZOLPIDEM TARTRATE 5 MG TABLET PO ONE (01:30)
[2024-02-19] MEDS: POTASSIUM CL SA 10 MEQ TAB PO ONE (09:14)
[2024-02-19] MEDS: PANTOPRAZOLE 40 MG INJ IVP SCH (09:14)
[2024-02-19] MEDS: MAGNESIUM SULFATE 1 gm IVPB 1 GM/100 ML BAG IV ONE (09:31)
[2024-02-19] MEDS: ENOXAPARIN 40 MG/0.4 ML SQ SCH (09:31)
[2024-02-19] MEDS: OSELTAMIVIR 30 MG CAP PO SCH (09:56)
--- NOTE | 2024-02-19 10:12 | P.PN ---
Subjective Date of Service: 02/19/24 Chief Complaint: Recent influenza productive cough Patient is doing well was transferred from [facility] has been sick for about a week complaining of flulike symptoms cough congestion no fever or chills she had a fall about a year ago no prior history of cardiopulmonary problems's were mildly elevated Review of Systems General: Weakness Respiratory: Cough, Shortness of Breath Physical Examination - Vital Signs Temperature: 98.3 F Blood Pressure: 145/68 Pulse: 89 Respirations: 16 Pulse Ox (%): 95 - Physical Exam General: Alert, Oriented x3 HEENT: PERRLA Respiratory: Clear to auscultation bilaterally Cardiovascular: No edema, Regular rate/rhythm - Studies Laboratory Data (last 24 hrs) 02/19/24 02/18/24 02/18/24 04:19 23:30 23:30 WBC 4.70 Hgb 10.0 L Hct 30.6 L Plt Count 120 L Sodium 136 Potassium 3.5 BUN 15 Creatinine 1.03 H Glucose 97 Phosphorus 3.4 Magnesium 1.7 Total Bilirubin 0.3 AST 15 ALT 22 Alkaline Phosphatase 90 Triglycerides 90 Cholesterol 167 HDL Cholesterol 71 H Cholesterol/HDL Ratio 2.35 Assessment And Plan - Current Problems (Diagnosis) (1) NSTEMI (non-ST elevated myocardial infarction) Current Visit: Yes Status: Acute Plan: Patient has a mild non-STEMI troponins are declining most likely due to the influenza infection probably need an outpatient workup patient has a history of rib fractures and fallen about a year ago (2) Influenzal acute upper respiratory infection Current Visit: Yes Status: Acute Plan: Patient is complaining of cough congestion has been sick for about a week. Started on treatment with bronchodilators and medication for influenza was chemistries reviewed today anemic chemistries unremarkable
[2024-02-19 11:15] LABS: Specific Gravity > 1.030 (1.005-1.030); Sqamous Epithelial <5 /HPF (None Seen); Urine Bacteria None Seen /HPF (<20); Urine Bilirubin NEGATIVE (Negative); Urine Blood Negative (Negative); Urine Clarity Clear (Clear); Urine Color Light-Yellow (Yellow); Urine Culture Reflex Order NOT NEEDED; Urine Glucose NEGATIVE (Negative); Urine Ketones NEGATIVE (Negative); Urine Microscopic Reflex YN ORDER UMIC; Urine Nitrite NEGATIVE (Negative); Urine Protein TRACE (Negative); Urine RBC <5 /HPF (None Seen); Urine Urobilinogen Normal (Normal); Urine WBC <5 /HPF (<5)
--- NOTE | 2024-02-19 12:00 | RAD REPORT ---
EXAMINATION: ONE VIEW CHEST XR CLINICAL INDICATION: Pneumonia and rib fractures TECHNIQUE: Frontal chest projection is submitted. Examination is limited by patient positioning and t echnique. COMPARISON: 10/12/2023, 02/16/2023 FINDINGS: Areas of sclerosis involving several right posterior ribs compatible with subacute fractures. No garett urable pneumothorax. The lungs appear grossly clear. Trace left pleural fluid. The heart is upper limit of normal in size. No acute fracture suspected.
[2024-02-19] MEDS: hydroCHLOROthiazide 25 MG TAB PO SCH (12:36)
[2024-02-19] MEDS: VALSARTAN 160 MG TAB PO SCH (12:36)
[2024-02-19] MEDS: AMLODIPINE 5 MG TAB PO SCH (12:37)
[2024-02-19] MEDS: DOCUSATE NA/SENNA CONC 1 TAB PO SCH (12:37)
[2024-02-19] MEDS: DULERA 200/5 (MOMETASONE/FORMOTEROL) INHALER IH SCH (12:38)
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
[2024-02-19] MEDS: DOXEPIN HCL 25 MG CAP PO SCH (20:19)
[2024-02-19] MEDS ORDERED: DOXEPIN HCL 75 MG PO SCH (21:00)
[2024-02-19] MEDS ORDERED: ACETAMINOPHEN 325 MG TABLET PO PRN (22:26)
[2024-02-19] MEDS: ACETAMINOPHEN 325 MG TABLET ONE (22:32)
[2024-02-19] MEDS: ONDANSETRON 4 MG/2 ML VIAL IV PRN (22:39)
[2024-02-20 04:00] VITALS: O2SAT 97
--- NOTE | 2024-02-20 07:45 | RAD REPORT ---
EXAMINATION: ONE VIEW CHEST XR CLINICAL INDICATION: Pneumonia and rib fractures TECHNIQUE: Frontal chest projection is submitted. Examination is limited by patient positioning and t echnique. COMPARISON: 02/19/2024 FINDINGS: Mildly emphysematous changes are present throughout the lungs. The heart is upper limit of normal in size. Right posterior chronic rib fractures seen. IMPRESSION: No acute intrathoracic abnormalities.
[2024-02-20 07:46] VITALS: BP 128/60; TEMP 96.5
[2024-02-20] MEDS ORDERED: hydroCHLOROthiazide 25 MG TAB PO SCH (09:00)
[2024-02-20] MEDS ORDERED: HOME MED 1 EA UNK (Valsartan/Hydrochlorothiazide [Valsartan-Hctz 320-25 Mg Tab] 1 EACH Tab PO SCH (09:00)
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
== END 2024-02-20 11:15 | disposition home or self-care (01) | DRG 193 ==
LOC: 2ND 19:05
PROVIDERS: ADMIT Internal Medicine Sleep Medicine; ATTEND Internal Medicine Sleep Medicine
DX: J10.1 Influenza due to other identified influenza virus with other respiratory manifestations (principal); I21.A1 Myocardial infarction type 2; S22.41XA Multiple fractures of ribs, right side, initial encounter for closed fracture; D61.818 Other pancytopenia; N17.9 Acute kidney failure, unspecified; I35.0 Nonrheumatic aortic (valve) stenosis; I10 Essential (primary) hypertension; F41.9 Anxiety disorder, unspecified; E78.5 Hyperlipidemia, unspecified
CPT/HCPCS: 36415; 71045; 80053; 80061; 81001; 82947; 83735; 83880; 84100; 84484; 85025; 87040; 94760; J0360; J1650; J2405; J2470; J3475; J3535